=== PATIENT | male | born 1965 | race Caucasian/White ===

== ENCOUNTER → 2017-07-19 | Day surgery (SDC) | payer OTHER ==
[~2017-07-19] VITALS: Ht 180.3 cm; Wt 57.6 kg
[~2017-07-19] MED LIST: ADVAIR 250/501 EA; ALBUTEROL2.5 MG/0.5 INH; AMITRIPTYLINE100 M1 PO; ASPIR-LOW81 MG PO; ASPIRIN325 MG PO; BREO ELLIPTA 11 EACH IH; CEFUROXIME250 MG PO; CRESTOR20 MG PO; DAYPRO600 M1 PO; INCRUSE EL62.5 MCG/A IH; KLONOPIN1 MG PO; LEVOTHYROXIN0.025 MG PO; MOTRIN800 MG PO; NEXIUM20 MG PO; PLAVIX75 MG; PRAVACHOL40 MG PO; PREDNISONE20 M1 PO; PRILOSEC20 M1 PO; PROTONIX40 MG PO; SINGULAIR10 M1 PO; VENTOLIN H0.09 MG/AC INH; VICODIN ES 7501 TA1 PO; VITAMIN D5000 I2 PO; ZOLOFT100 MG PO
--- NOTE | ~2017-07-19 | PROC NOTE ---
[place], [place] PROCEDURE NOTE NAME: ARELIS FOLEY UNIT #: [id number] ROOM: DOCTOR: DESIREE MURCIA MD,NICKY BIRTHDATE: [birth year] DOS: 07/19/2017 PREOPERATIVE DIAGNOSES: Persistent severe cough and wheezing, not resolving with current maximum medical therapy. POSTOPERATIVE DIAGNOSES: Evidence of tracheobronchitis and removal of multiple plugs and mucus from endobronchial tree. PROCEDURE DESCRIPTION: Informed consent was obtained for the patient. The patient brought to the OR and placed in supine position. Conscious sedation administered by the Anesthesia Department. After achieving appropriate sedation, airway introduced into the mouth. The bronchoscope was advanced into the airway into the laryngeal area. The epiglottis and vocal cords were seen, which were moving symmetrically with movements and yellowish in color. The bronchoscope was advanced to the vocal cords into tracheal lumen. The tracheal lumen was noted with moderate amount of thick mucus secretions suctioned out nisha level. Nisha noted sharp. Right upper, right middle, right lower, left upper, lingular lower lobe bronchi for this patient were all examined. Moderate amount of mucus plug for the patient present in the endobronchial tree bilaterally, cleared with the help of normal saline wash, sent for culture. Procedure was tolerated by the patient without any difficulty. Postoperative findings were discussed with the patient's spouse in detail in the recovery room. NICKY RAMÍREZ MD CM:PROCNOTE:PROCEDURE NOTE [id number] NICKY MURCIA MD
[2017-07-19 08:38] VITALS: BP 153/93
[2017-07-19 09:10] VITALS: BP 152/84
[2017-07-19 09:25] VITALS: BP 144/85
[2017-07-19 09:40] VITALS: BP 130/86
[2017-07-20 16:08] LABS: ACID FAST SMEAR Negative (.); ACID FAST SPEC PROCESSING Concentration (.)
== END | disposition home or self-care (01) ==
LOC: SDC 07-16 10:15
PROVIDERS: Internal Medicine Critical Care Medicine
DX: J40 Bronchitis, not specified as acute or chronic (principal); J98.4 Other disorders of lung; I25.2 Old myocardial infarction; I25.10 Atherosclerotic heart disease of native coronary artery without angina pectoris; Z95.5 Presence of coronary angioplasty implant and graft; K21.9 Gastro-esophageal reflux disease without esophagitis; F41.9 Anxiety disorder, unspecified; F32.9 Major depressive disorder, single episode, unspecified; F17.210 Nicotine dependence, cigarettes, uncomplicated; J43.9 Emphysema, unspecified; E78.00 Pure hypercholesterolemia, unspecified; Z98.890 Other specified postprocedural states

== ENCOUNTER → 2017-12-06 | Day surgery (SDC) | payer OTHER ==
[~2017-12-06] VITALS: Ht 180.3 cm; Wt 56.7 kg
--- NOTE | ~2017-12-06 | PROC NOTE ---
[place], [place] PROCEDURE NOTE NAME: ARELIS FOLEY UNIT #: [id number] ROOM: DOCTOR: DESIREE MURCIA MD,NICKY BIRTHDATE: [birth year] DOS: 12/06/2017 PREOPERATIVE DIAGNOSES: Persistent nonresolving cough as outpatient with multiple administration of antibiotics as an outpatient and use of corticosteroids. POSTOPERATIVE DIAGNOSES: Moderate impaction of the mucus as well as finding of acute tracheobronchitis noted. PROCEDURE DESCRIPTION: Informed consent obtained from the patient. The patient brought to the OR and placed in supine position. Conscious sedation was administered by the Anesthesia Department. After achieving proper sedation, airway introduced into the mouth. Bronchoscope advanced to the airway into the laryngeal area. Epiglottis and vocal cords were seen. Vocal cords noted yellowish in color, moving symmetrically with movements. Bronchoscope entered vocal cord and tracheal lumen that shows moderate amount of mucus secretion with small purulent secretion that was suctioned out at maty level. Moderate mucus plug was also present in endobronchial tree bilaterally, which was suctioned out with normal saline wash, sent for cultures. Procedure was well tolerated by the patient without difficulty. Postoperative findings were discussed with the patient after the completion of procedure in the recovery room. The patient will be seen in the office for followup visit to determine the additional changes in the medical management accordingly. NICKY RAMÍREZ MD CM:PROCNOTE:PROCEDURE NOTE [id number] NICKY MURCIA MD
[2017-12-06 08:17] VITALS: BP 109/70
[2017-12-06 08:55] VITALS: BP 112/78
[2017-12-06 09:08] VITALS: BP 107/63
[2017-12-06 09:23] VITALS: BP 113/71
[2017-12-07 17:09] LABS: ACID FAST SMEAR Negative (.); ACID FAST SPEC PROCESSING Concentration (.)
== END ==
LOC: SDC 12-05 08:45
PROVIDERS: Internal Medicine Critical Care Medicine
DX: J20.9 Acute bronchitis, unspecified (principal); J98.09 Other diseases of bronchus, not elsewhere classified; I25.2 Old myocardial infarction; I25.10 Atherosclerotic heart disease of native coronary artery without angina pectoris; Z95.5 Presence of coronary angioplasty implant and graft; J43.9 Emphysema, unspecified; K21.9 Gastro-esophageal reflux disease without esophagitis; F41.9 Anxiety disorder, unspecified; F32.9 Major depressive disorder, single episode, unspecified; Z87.891 Personal history of nicotine dependence; Z98.890 Other specified postprocedural states; Z79.899 Other long term (current) drug therapy; E07.89 Other specified disorders of thyroid; Z88.2 Allergy status to sulfonamides; Z88.8 Allergy status to other drugs, medicaments and biological substances

== ENCOUNTER 2017-12-11 12:47 | Inpatient (IN) | payer OTHER ==
[~2017-12-11] VITALS: Ht 180.3 cm; Wt 55.3 kg
--- NOTE | ~2017-12-11 | PR ---
[place], [place] PROGRESS NOTE NAME: ARELIS FOLEY UNIT #: [id number] ROOM: 526 DOCTOR: ZACH GUSMAN MD BIRTHDATE: [birth year] DOS: 12/13/2017 SUBJECTIVE: The patient's breathing is improving with treatment. He is less short of breath. OBJECTIVE: VITAL SIGNS: Blood pressure 108/64, heart rate of 101 beats per minute, breathing 20 times per minute, temperature 98.2 degrees Fahrenheit. GENERAL APPEARANCE: The patient is alert and oriented x 3, in no visible distress. HEENT AND NECK: Exam within normal limits. CARDIOVASCULAR SYSTEM: Heart rate is regular in rate and rhythm. S1 and S2 normally audible. LUNGS: Clear to auscultation. ABDOMEN: Soft, nontender. No obvious organomegaly. Bowel sounds are present. EXTREMITIES: Without significant cyanosis or edema. IMPRESSION: 1. Acute community-acquired pneumonia, being treated with antibiotics. The patient is clinically improving. 2. Acute over chronic respiratory failure, improving with treatment. 3. Acute exacerbation of severe underlying chronic obstructive pulmonary disease. 4. History of chronic nicotine smoke dependence. The patient is being encouraged to stop. 5. Hypothyroidism, treated with thyroid supplements. 6. Generalized anxiety disorder, treated with clonazepam as needed. 7. Coronary artery disease of the [place] vessels, without chest pains. ZACH GUSMAN MD CM:PNTRANS [phone] ZACH GUSMAN MD 12/13/171923 interface
--- NOTE | ~2017-12-11 | PR ---
[place], [place] PROGRESS NOTE NAME: ARELIS FOLEY UNIT #: [id number] ROOM: 526 DOCTOR: JOSE F GARCIA MD BIRTHDATE: [birth year] DOS: SUBJECTIVE: The patient is sitting up in bed in no distress, states that his cough is better and sputum is loose, now he is able to cough up a lot of mucus. OBJECTIVE: VITAL SIGNS: Graphic trend shows a pressure of 152/85, pulse of 79, respirations 18, temperature 98.5. LUNGS: Diminished breath sounds, clear this morning. HEART: Regular. ABDOMEN: Soft, scaphoid. EXTREMITIES: Without any edema. LABORATORY DATA: Sputum culture shows light yeast. Echocardiogram shows normal LV function. ASSESSMENT AND PLAN: 1. The patient with hypoxic respiratory failure, acute from underlying pneumonia, left lung. The patient is on antibiotics. Sputum cultures are negative. 2. Ventricular dysrhythmia with hypomagnesemia and hypokalemia. The patient was seen by Cardiology. No further workup planned. We will recheck labs in the morning. Hopefully, discharge on Sunday. JOSE F GARCIA MD CM:PNTRANS [phone] JOSE F GARCIA MD 12/15/172030 interface
--- NOTE | ~2017-12-11 | PR ---
[place], [place] PROGRESS NOTE NAME: ARELIS FOLEY UNIT #: [id number] ROOM: 526 DOCTOR: JOSE F GARCIA MD BIRTHDATE: [birth year] DOS: SUBJECTIVE: The patient is doing fine without any complaint. Denies any chest pains, palpitations or shortness of breath. Her chest x-ray shows clearing of the pneumonia. OBJECTIVE: VITAL SIGNS: Blood pressure is 141/87, pulse of 96, respirations 20, temperature 97.9. LUNGS: Clear. HEART: Regular. ABDOMEN: Soft. EXTREMITIES: Without any edema. ASSESSMENT AND PLAN: 1. Left lower lobe pneumonia with negative Sputum culture. 2. Acute exacerbation of chronic obstructive pulmonary disease, improved. Bronchospasm. The plan is to discharge him home today to follow up with Dr. Batista as well as Dr. Parikh as an outpatient. Prescription for Ceftin and a tapering dose of antibiotics were given. JOSE F GARCIA MD CM:PNTRANS [phone] JOSE F GARCIA MD 12/17/17 0951 interface
--- NOTE | ~2017-12-11 | PR ---
[place], [place] PROGRESS NOTE NAME: ARELIS FOLEY UNIT #: [id number] ROOM: 526 DOCTOR: ZACH GUSMAN MD BIRTHDATE: [birth year] DOS: 12/14/2017 SUBJECTIVE: The patient continues to breathe better. He is going for repeat chest x-ray today. OBJECTIVE: VITAL SIGNS: Blood pressure 118/62, heart rate 93 beats per minute, breathing 20 times per minute, temperature 98 degrees Fahrenheit. GENERAL APPEARANCE: The patient is alert and oriented x 3, in no visible distress. HEENT AND NECK: Exam within normal limits. CARDIOVASCULAR SYSTEM: Heart rate is regular in rate and rhythm. S1 and S2 normally audible. LUNGS: Clear to auscultation. ABDOMEN: Soft, nontender. No obvious organomegaly. Bowel sounds are present. EXTREMITIES: Without significant cyanosis or edema. IMPRESSION: 1. The patient with acute exacerbation of severe underlying chronic obstructive pulmonary disease and acute over chronic respiratory failure, continues to improve. 2. Bilateral lower lobe pneumonia, more on the left side, being treated with antibiotics and followed by Dr. Parikh, the fitness studies teacher. The patient is going for repeat chest x-ray today. 3. Coronary artery disease of the [place] vessels, without chest pain. 4. Severe generalized anxiety disorder, being treated with clonazepam as needed. 5. Hypothyroidism, treated with supplements. 6. History of chronic nicotine abuse and dependence. The patient encouraged to stop. ZACH GUSMAN MD CM:PNTRANS [id number] ZACH GUSMAN MD 12/14/17 1152 interface
--- NOTE | ~2017-12-11 | CON ---
[place], [place] REPORT OF CONSULTATION NAME: ARELIS FOLEY UNIT #: [id number] ROOM: 526 DOCTOR: NICKY COLLADO MD BIRTHDATE: [birth year] DOS: 12/12/2017 PULMONARY CONSULTATION, EVALUATION AND MANAGEMENT CONSULTATION REQUESTED BY: Dr. Batista. REASON FOR CONSULTATION: To assess the patient for the current acute pneumonia with chest pain or respiratory failure. HISTORY OF PRESENT ILLNESS: This is a 52-year-old white male who has been well known to me from the past. The patient has recently outpatient bronchoscopy done last week because of nonresolving cough. The patient has reported improvement and resolution of the cough after that, but yesterday the patient seen in the office for followup visit. He stated he woke up with severe pain, which described in the lower rib cage. The pain was described radiating from the back to the front as well. The symptoms of cough for the patient has been developed again with increased shortness of breath that occurs with mild exertion. The patient was noted with symptoms of fatigue as well. There were no symptoms of hemoptysis reported by the patient. He does have some symptoms of wheezing. The patient was assessed in the office. Pulse oxygen saturation of the patient is noted as 86% at rest on room air, which was a new finding. The patient was started on oxygen supplementation on 2 liters cannula. The oxygen saturation improved to 91% with that. The chest x-ray done in the office, which shows chronic infiltration most likely in the left lower lobe for this patient with changes of severe COPD and bullous emphysema. He was sent to the Emergency Room. The patient was assessed in the Emergency Room. The patient did speak with Dr. Nunez about patient's assessment. The patient has been admitted to the hospice. CTA of the chest was done yesterday that did rule out the evidence of pulmonary embolism, but the pneumonia was reported in the lower lungs. REVIEW OF SYSTEMS: CONSTITUTIONAL: Fatigue and tiredness as well. Denies symptoms of fever or chills. EYES: Denies any burning, redness, or tenderness. EARS, NOSE, AND THROAT SYMPTOMS: Denies sore throat, hoarseness, otalgia, postnasal drainage or epistaxis. CARDIOVASCULAR: Denies angina pain, edema or pain of the lower extremities. GASTROINTESTINAL: No dysphagia, nausea, vomiting, diarrhea, abdominal pain, hematemesis, melena, or hematochezia. GENITOURINARY: No dysuria, suprapubic pain, hematuria. SKIN: Denies lesions or rashes. MUSCULOSKELETAL: Without any acute deformities. CENTRAL NERVOUS SYSTEM: Denies dizziness, headache, diplopia, syncopal episode, seizures or any focal neurologic deficit or migraine headache, or diplopia. Remaining systems were reviewed with the patient, they were noted all negative. PAST MEDICAL HISTORY: 1. History of end-stage COPD. [place], [place] REPORT OF CONSULTATION NAME: ARELIS FOLEY UNIT #: [id number] ROOM: 526 DOCTOR: NICKY COLLADO MD BIRTHDATE: [birth year] 2. 7.4 mm right upper lung nodule. The patient known since May 2017. 3. Past history of traumatic sternal fracture for the patient that was treated and resolved. 4. Hypothyroidism. 5. Hypercholesterolemia. 6. Intervertebral disk disease. 7. History of coronary artery disease. 8. Gastroesophageal reflux. 9. Chronic nicotine dependence. PAST SURGICAL HISTORY: 1. Cardiac catheterization in 2004. 2. Fibrobronchoscopy that was done in 12/2017. FAMILY HISTORY: The patient's father at age 46-year-old with complication of liver cirrhosis. The mother at age 46 with complication of COPD. SOCIAL HISTORY: The patient is , has 4 children, lives at home. Tobacco use was noted at age of [age] years old, 1.5 pack of cigarettes per day to a pack of cigarettes per day intermittently. No history of alcohol use, illicit drug use. There was no occupation related pulmonary exposure history. CURRENT MEDICATIONS: Administered the patient was noted as use of Singulair, Plavix, sertraline, aspirin, Protonix, levothyroxine, simvastatin, amitriptyline, DuoNeb, Zithromax, IV Zosyn and other p.r.n. medications administration. DRUG ALLERGIES: NOTED ALLERGY TO: 1. BACTRIM. 2. LEVAQUIN. PHYSICAL EXAMINATION: GENERAL: A 52-year-old male who has been currently noted to be awake and alert at this time better than yesterday. Height of 5 feet 11 inches, weight of 122 pounds, BMI 17. VITAL SIGNS: Shows normal temperature noted. The respiratory rate range between 18-20, heart rate 90-110 with mild sinus tachycardia, blood pressure 86/59-113/71. Pulse oxygen saturation of the patient noted on 3 liters cannula was 92% saturation. HEENT: Head was atraumatic. Eyes: No icterus. NECK: Supple. CARDIOVASCULAR: S1, S2 is audible. LUNGS: The patient was noted generally reduced air entry in the lungs. Partial improvement. The expiratory wheezing noted in the upper portion of the lungs today. ABDOMEN: Soft, nontender. Bowel sounds present. EXTREMITIES: The patient was noted with chronic loss of muscle mass without any deformities. SKIN: Visible skin. No lesions or rashes. MUSCULOSKELETAL: Without any gross focal neurologic deficit. Cranial nerves [place], [place] REPORT OF CONSULTATION NAME: ARELIS FOLEY UNIT #: [id number] ROOM: 526 DOCTOR: NICKY COLLADO MD BIRTHDATE: [birth year] 2-12 intact. LABORATORY DATA: Acid fast smear for the patient noted initial negative. Bronchial washing, pending culture. The cultures of the bronchial washing of the patient from 12/06/2017 were noted as no bacterial growth. Lactic acid yesterday 1.0. CMP yesterday, the patient's BUN and creatinine was normal, sodium 135. Troponin was normal. The CBC of the patient that was done yesterday, WBC count 16.9, hemoglobin 11.2, hematocrit 34.2, platelet count of 19,000. The chest x-ray one view in the Emergency Room shows similar finding as previously noted severe changes of COPD for the patient with possible pulmonary infiltration in the left lower lobe for the patient or scarring. CT of the chest yesterday does not show any evidence of pulmonary embolism. Diffuse centrilobular emphysema changes noted with some bullous formation as well in the lungs bilaterally. The patient was noted with infiltration, which was noted in the previous of the left lower lobe, moderate size. Small infiltration in the right lower lobe was also noted. The lingular subsegment for the patient also shows evidence of a small infiltration. IMPRESSION: 1. The patient was currently noted with acute pneumonia with acute hypoxic respiratory failure with acute exacerbation of chronic obstructive pulmonary disease as well. 2. Rule out chronic infection with the patient including Mycobacterium avium intracellular, the bronchoscopy done for the patient with pending culture results, acid fast bacillus too early to get the results. 3. History of chronic nicotine dependence as well. 4. Chronic protein-calorie malnutrition was also seen. PLAN OF MANAGEMENT: Continuation of the oxygen supplementation and bronchodilators. Steroids will be added to the treatment. Solu-Medrol 40 mg b.i.d. to help resolve the exacerbation of COPD. The sputum for Gram stain and culture were re-ordered as well. Monitor other culture results. The patient was also noted mild hypertension secondary to intravascular volume depletion. The patient will benefit from use of intravenous fluid, which has already been noted in progress ordered by Dr. Batista. Other supportive therapy, plan of management and care plan for the patient. Additional treatment changes to be made for the patient based on the progression of the illness. Changes in the medical management will be made for the patient based on progression of the illness. Thanks for allowing me to participate in the care of this patient. [place], [place] REPORT OF CONSULTATION NAME: ARELIS FOLEY UNIT #: [id number] ROOM: 526 DOCTOR: NICKY COLLADO MD BIRTHDATE: [birth year] NICKY RAMÍREZ MD CM:CONSTR:REPORT OF CONSULTATION 1406 12/12/17 2332 interface
--- NOTE | ~2017-12-11 | PR ---
[place], [place] PROGRESS NOTE NAME: ARELIS FOLEY UNIT #: [id number] ROOM: 526 DOCTOR: DESIREE MURCIA MD,NICKY BIRTHDATE: [birth year] DOS: 12/14/2017 SUBJECTIVE: The patient noted comfortable at this time, resting in the bed. Shortness of breath, cough and wheezing other symptoms have been gradually subsiding. Denies symptoms of chest pain at this time. The previous chest pain reported in the lower portion of the chest is improving. OBJECTIVE: VITAL SIGNS: Normal temperature, respiratory rate 18, heart rate 92, blood pressure 122/73. The pulse oxygen saturation on room air 96% saturation. HEENT: Shows no acute change. NECK: Supple. CARDIOVASCULAR: S1, S2 is audible. LUNGS: The patient noted without any wheeze or crackles at this time. ABDOMEN: Soft, nontender. EXTREMITIES: The patient noted without any acute edema. IMPRESSION: 1. Resolving acute bilateral pneumonia clinically with acute exacerbation of chronic obstructive pulmonary disease as well. 2. History of chronic nicotine dependence as well. PLAN OF TREATMENT: Continue current antibiotic. Obtain a chest x-ray in the morning. Culture of the sputum preliminary showing normal josé luis with pending results. The culture will be monitored prior to making any final recommendation of the changes in the antibiotics. NICKY RAMÍREZ MD CM:PNTRANS [id number] NICKY MURCIA MD 12/15/17 0116 interface
--- NOTE | ~2017-12-11 | PR ---
[place], [place] PROGRESS NOTE NAME: ARELIS FOLEY UNIT #: [id number] ROOM: 526 DOCTOR: DESIREE MURCIA MD,NICKY BIRTHDATE: [birth year] DOS: 12/17/2017 SUBJECTIVE: The patient noted comfortable and has been noted with complete resolution of the pain, shortness of breath and cough. All other symptoms have been improving. Denies symptoms of chest pain or any hemoptysis. OBJECTIVE: VITAL SIGNS: For the patient which has been recorded showed the temperature noted normal, respiratory rate 20, heart rate 96, blood pressure 141/87. The pulse oxygen saturation for the patient was noted on room air 95% saturation. HEENT: No acute change. NECK: Supple. CARDIOVASCULAR: S1, S2 is audible. LUNGS: Without any wheeze or crackles at this time. Breath sounds are [id number] decreased bilaterally. Good air entry otherwise. ABDOMEN: Soft and nontender. EXTREMITIES: Without any acute edema. RADIOLOGIC DATA: Chest x-ray this morning shows further resolution of the left lower lobe infiltration, which were almost completely resolved. IMPRESSION: The patient with resolution of acute pneumonia, gram-negative organisms and gram-positive effectively treated with Zosyn. Currently ready for home discharge. The patient was started on oral Augmentin 375 mg p.o. b.i.d. to be taken for 5 days. Further treatment changes will be done for this patient based on the progression of the illness. NICKY RAMÍREZ MD CM:PNTRANS [phone] NICKY MURCIA MD 12/17/17 1317 interface
--- NOTE | ~2017-12-11 | PR ---
[place], [place] PROGRESS NOTE NAME: ARELIS FOLEY UNIT #: [id number] ROOM: 526 DOCTOR: NICKY COLLADO MD BIRTHDATE: [birth year] DOS: 12/16/2017 SUBJECTIVE: The patient continued to show improvement in respiratory symptoms. The patient has improved significantly. There were no symptoms of abdominal pain. Denies symptoms of nausea or vomiting. Coughing has been subsiding. Shortness of breath is improving. OBJECTIVE: VITAL SIGNS: Normal temperature, respiratory rate 20, heart rate 84, blood pressure 180/64. HEENT: Examination shows head was atraumatic. Eyes nonicterus. NECK: Supple. CARDIOVASCULAR: S1, S2 was audible. LUNGS: The patient was noted without any wheezing or crackles at the present time. Breaths are noted mildly diminished bilaterally. ABDOMEN: Soft, nontender. EXTREMITIES: Without any acute edema. LABORATORY DATA: BMP today noted normal BUN and creatinine and other electrolytes. Chest x-ray of the patient that was done for the patient on 12/16/2017 for the patient shows area of atelectasis. The patient infiltration in the left lower lobe which has been noted decreased as compared with previous chest x-ray. IMPRESSION: 1. Resolving acute bilateral lower lobe pneumonia, documented on CT scan of the chest. 2. She is improving acute exacerbation of chronic obstructive pulmonary disease as well. PLAN OF TREATMENT: No changes in the plan of therapy of the patient at this time. Continuation of the current plan of management for the patient at this time. Usual care. Supportive care, other treatment. and therapies. [place], [place] PROGRESS NOTE NAME: ARELIS FOLEY UNIT #: [id number] ROOM: 526 DOCTOR: NICKY COLLADO MD BIRTHDATE: [birth year] NICKY RAMÍREZ MD CM:PNTRANS [id number] NICKY MURCIA MD 12/16/17 1434 interface
--- NOTE | ~2017-12-11 | PR ---
[place], [place] PROGRESS NOTE NAME: ARELIS FOLEY UNIT #: [id number] ROOM: 526 DOCTOR: DESIREE MURCIA MD,NICKY BIRTHDATE: [birth year] DOS: 12/13/2017 PULMONARY FOLLOWUP SUBJECTIVE: The patient has been noted comfortable at this time, although shortness of breath was noted. The cough has been improving. Denies symptoms of chest pain or hemoptysis. The patient has not been noted any symptoms of edema or pain of the lower extremities. OBJECTIVE: VITAL SIGNS: For the patient which has been recorded showed normal temperature, respiratory rate 20, heart rate 101, blood pressure 108/64, pulse oxygen saturation on room air was 93% saturation. HEENT: No acute change. NECK: Supple. Head was atraumatic. CARDIOVASCULAR: S1, S2 is audible. LUNGS: The patient was noted without any wheeze or crackles at the present time. Breath sounds still noted generally diminished bilaterally, but the improvement in air entry was noted yesterday. IMPRESSION: Bilateral acute lower lobe pneumonia greater in the left than the right side, responded to treatment. Culture of the sputum pending. The Gram stain, moderate white blood cells, moderate gram-positive cocci in pairs and chains. PLAN OF THERAPY: Continuation of the current plan of therapy for the patient at this time as in progress. Usual care. Additional treatment changes to be made for the patient based on progression of the illness. NICKY RAMÍREZ MD CM:PNTRANS [phone] NICKY MURCIA MD 12/13/17 2301 interface
--- NOTE | ~2017-12-11 | DS ---
[place], [place] DISCHARGE SUMMARY NAME: ARELIS FOLEY UNIT #: [id number] ROOM: 526 DOCTOR: JOSE F GARCIA MD BIRTHDATE: [birth year] DOS: Please refer to Dr. Batista's H and P for further details. The patient was admitted to the hospital with complaints of shortness of breath, cough, shaking chills, was found to have an elevated white cell count of 21,000 in the ER. He was hypotensive and slightly lethargic, was admitted to the hospital. The patient after admission was placed on IV fluids, IV antibiotics. Consultation with Dr. Parikh was obtained. A CT of the chest was done, which showed bilateral lower lobe pneumonia, which is most likely Gram-negative with sepsis pattern. The patient's blood cultures were ordered with IV fluids, oxygen supplementation, breathing treatments, antibiotics and steroids. His symptoms did improve. His blood pressure normalizes and he is no longer lethargic. His cough and shortness of breath have subsided. Chest x-ray was rechecked and it shows improvement radiologically also. On December 18, the patient is stable enough to be discharged to home on tapering dose of prednisone and Ceftin 250 twice a day. The rest of his home medications were continued. JOSE F GARCIA MD CM:GLORIA [phone] JOSE F GARCIA MD 12/19/172200 interface
--- NOTE | ~2017-12-11 | PR ---
[place], [place] PROGRESS NOTE NAME: ARELIS FOLEY UNIT #: [id number] ROOM: 526 DOCTOR: DESIREE MURCIA MD,NICKY BIRTHDATE: [birth year] DOS: 12/15/2017 PULMONARY PROGRESS NOTE SUBJECTIVE: The patient has been noted comfortable at this time, continued to show reduction and improvement in symptoms of chest pain. Shortness of breath and cough has been gradually subsiding. The patient denies symptoms of hemoptysis. Continue intravenous antibiotic for the management of acute pneumonia. The patient denies any abdominal pain. OBJECTIVE: VITAL SIGNS: Normal temperature, respiratory rate 18, heart rate 67, blood pressure 141/78. The pulse oxygen saturation recorded as 94% on room air. HEENT: Showed no acute change. NECK: Supple. CARDIOVASCULAR: S1, S2 audible. LUNGS: Noted with improvement in air entry of the lungs noted bilaterally. ABDOMEN: Soft, nontender. EXTREMITIES: Without any acute edema. LABORATORY DATA: Culture of the sputum was noted mild growth of yeast. IMPRESSION: The patient with acute bacterial pneumonia involving lower lung. Considered as a gram-negative infection. The patient responded to the treatment effectively with current medical management, radiological and clinical improvement have been continued. PLAN OF MANAGEMENT: Continuation of intravenous antibiotic and IV Zosyn for the patient in the next several days. Discontinuation of the Zithromax. The Solu-Medrol will be continued as the acute exacerbation of chronic obstructive pulmonary disease. Continue the same dose. Repeat chest x-ray of the patient Sunday morning prior to possible consideration home discharge. NICKY RAMÍREZ MD CM:PNTRANS NICKY MURCIA MD 12/15/17 0953 interface
--- NOTE | ~2017-12-11 | WRIGHTHP ---
[place], [place] PATIENT HISTORY AND PHYSICAL EXAM NAME: ARELIS FOLEY [facility] #: [id number] UNIT #: [id number] ROOM: 526 DOCTOR: ZACH GUSMAN MD BIRTHDATE: [birth year] DOS: 12/11/2017 HISTORY OF PRESENT ILLNESS: The patient is a 52-year-old gentleman with history of: 1. Advanced COPD, with nicotine smoke dependence. 2. History of coronary artery disease of [place] vessels. 3. Major depression, recurrent, mild. 4. GERD and esophagitis. 5. Chronic back pains. 6. Mixed hyperlipidemia. 7. Generalized anxiety disorder. 8. Adult failure to thrive. 9. Hypothyroidism. The patient presented to [facility] Emergency Department, sent over by Dr. Parikh for bilateral lower lung pneumonia, left more than the right. The patient was having shaking chills at home and some shortness of breath, cough with sputum. In the Emergency Department, the patient was diagnosed as being septic with white cell count elevated to 21,300. He was in acute over chronic respiratory failure with pneumonia, chills and rigors and after admission he became hypotensive and is undergoing fluid resuscitation. The patient is awake, alert and he had become somewhat lethargic this morning and very tired, which has improved. The patient was never recorded to have any fevers, but the maximum temperature was 99.5 degrees Fahrenheit. REVIEW OF SYSTEMS: LUNGS: Some increasing shortness of breath, cough and purulent sputum. GASTROINTESTINAL: No nausea, vomiting, diarrhea or constipation. CARDIOVASCULAR: No chest pain or palpitations. FAMILY HISTORY: Noncontributory. HOME MEDICATIONS: Singulair, Plavix, Zoloft, aspirin, Protonix, levothyroxine, simvastatin, amitriptyline, DuoNeb, clonazepam, Vicodin. ALLERGIES: Known allergies to QUINOLONES, SULFA. PHYSICAL EXAMINATION: GENERAL: Alert, oriented x 3, ____. HEENT AND NECK: Extraocular movements are intact. Sclerae are anicteric. Oral mucosa is moist and clean. No obvious facial weakness. Neck is supple without any lymphadenopathy. No thyromegaly. No JVD. No carotid arterial bruits. LUNGS: Show decreased breath sounds and expiratory wheezing. CARDIOVASCULAR SYSTEM: Heart rate is regular in rate and rhythm. S1, S2 audible. ABDOMEN: Soft, nontender. No obvious organomegaly. Bowel sounds are present. No obvious herniation. EXTREMITIES: Without significant cyanosis or edema. Warm to touch. CENTRAL NERVOUS SYSTEM: Alert and oriented x 3. Cranial nerves II-XII are intact. Speech is normal. The patient is able to move all extremities. Normal [place], [place] PATIENT HISTORY AND PHYSICAL EXAM NAME: ARELIS FOLEY UNIT #: [id number] ROOM: 526 DOCTOR: ZACH GUSMAN MD BIRTHDATE: [birth year] muscle strength. Deep tendon reflexes are equal on both sides. Plantars were downgoing. LABORATORY DATA: Normal serum electrolytes. White cell count of 16,900, hemoglobin 11.2. Chest x-ray is showing COPD and some pulmonary fibrosis. CT angiogram of the chest showing bilateral lower lung patchy infiltrate, left more than the right, suggestive of pneumonia. IMPRESSION AND PLAN: 1. Acute community-acquired pneumonia, left more than the right with sepsis, severe leukocytosis, mild fever, hypotension, increased tiredness and hypotension is all improving with treatment with antibiotics and hydration with normal saline. The patient is being given fluid boluses with normal saline and his urine output is being watched. The patient kept on a ekg monitor tech. 2. Coronary artery disease of the [place] vessels and stent placement, without chest pain. 3. Acute exacerbation of severe underlying chronic obstructive pulmonary disease with acute over chronic respiratory failure, being treated with oxygen therapy and bronchodilators. 4. Gastroesophageal reflux disease and esophagitis, asymptomatic with treatment. The patient is on Protonix made. 5. Major depression, recurrent, mild, treated and controlled with Zoloft. 6. Hypothyroidism, treated with thyroid supplements. 7. Mixed hyperlipidemia, treated with simvastatin, which has been continued. 8. Generalized anxiety disorder, treated and controlled. The patient remains on clonazepam as needed. ZACH GUSMAN MD CM:HISPHYS:PATIENT HISTORY AND PHYSICAL EXAMINATION [id number] ZACH GUSMAN MD 12/12/17 1206 interface
--- NOTE | ~2017-12-11 | PR ---
[place], [place] PROGRESS NOTE NAME: ARELIS FOLEY [facility] #: [id number] UNIT #: [id number] ROOM: 526 DOCTOR: CRAIG AYOUB MD BIRTHDATE: [birth year] DOS: 12/15/2017 SUBJECTIVE: The patient was seen at his bedside today 12/15/2017 for followup of ventricular arrhythmias. He is a 52-year-old man who reportedly has a history of coronary artery disease with a stent placed in 2004. He has not had cardiology followup since. He did have a stress test on 11/27/2016 which showed an ejection fraction of 69% and normal myocardial perfusion. The patient is known to have severe obstructive lung disease and presented to this hospital on this occasion with acute exacerbation of his lung disease associated with a left lower lobe pneumonia. He is being treated with antibiotics. He states that his breathing has improved and his cough has diminished. During this hospitalization, he has been noticed on the monitor to have frequent PVCs with runs of bigeminy. We were asked to determine if this was a clinically significant finding. The patient denies chest pain or palpitations. He has not had any lightheadedness or syncope. The monitor has not shown any ventricular tachycardia and his troponin level was normal. He did have an echocardiogram on 12/14/2017 which was a technically difficult study due to his lung disease. Left ventricular size, wall thickness, regional wall motion, and systolic function were all normal. Diastolic function was also normal. The aortic root did appear to be mildly dilated measuring 3.9 cm; however, when I looked at the CAT scan of his chest with contrast, he does not have any evidence for an ascending aortic aneurysm. PHYSICAL EXAMINATION: GENERAL: Today, he is a slender white male who is awake, alert and oriented. VITAL SIGNS: Pulse is 85 and regular, blood pressure is 149/83. He is afebrile. He weighs 55.3 kg and has a body mass index of 17. HEENT: Normocephalic and atraumatic. Extraocular muscles are intact. Sclerae are clear. Pupils are equal, round and react to light. The oral mucosa is moist. Tongue is midline. NECK: Supple. He has no jugular distention. Carotids are full. I heard no bruits. He had no neck or supraclavicular masses and no thyromegaly. LUNGS: Respirations are unlabored. He has markedly diminished breath sounds bilaterally with a few scattered crackles. I did not hear any wheezes. He had no presacral edema or chest wall tenderness. HEART: Had distant tones which were regular. He has a soft S4 gallop, but no S3 or murmur. The PMI is not displaced. ABDOMEN: Soft and normally active. EXTREMITIES: Showed no edema. Peripheral pulses are palpable bilaterally. IMPRESSION: 1. Acute exacerbation of chronic lung disease. 2. Left lower lobe pneumonia. 3. Remote history of coronary artery disease. His most recent stress test done [place], [place] PROGRESS NOTE NAME: ARELIS FOLEY UNIT #: [id number] ROOM: 526 DOCTOR: CRAIG AYOUB MD BIRTHDATE: [birth year] about a year ago showed no evidence for left ventricular dysfunction or ischemia. 4. Echocardiogram 12/14/2017 was a technically difficult study, but otherwise unremarkable. 5. History of hypothyroidism, on replacement. 6. History of hyperlipidemia. 7. Tobacco abuse. PLAN: No other cardiac workup is planned at this time. We will continue to observe him intermittently in the hospital. As noted yesterday, the PVCs are likely due to a combination of hypoxemia, increased work of breathing, , etc. I thank Dr. Batista for asking our advice regarding the patient's care. CRAIG AYOUB MD CM:PNTRANS [id number] CRAIG AYOUB MD 12/15/17 1526 interface
[~2017-12-11 12:47] MED LIST changes: +KLONOPIN1 M1 PO; -KLONOPIN1 MG PO
[2017-12-11 13:07] VITALS: BP 110/68
[2017-12-11 13:52] LABS: BASO # 0.1 10*3/uL (0.0-0.1); BASO % 0.4 % (0.0-1.0); EOS % 0.1 % (1.0-4.0); HEMATOCRIT 34.6 % (42.0-52.0); HEMOGLOBIN 11.4 g/dl (14.0-18.0); LYMPH # 1.8 10*3/uL (1.3-4.4); LYMPH % 8.4 % (27.0-41.0); MEAN CELL VOLUME 88.5 fl (80.0-94.0); MEAN CORPUSCULAR HGB 29.2 pg (27.0-31.0); MEAN CORPUSCULAR HGB CONC 32.9 g/dl (33.0-37.0); MEAN PLATELET VOLUME 9.6 fl (9.6-12.3); MONO # 1.1 10*3/uL (0.1-1.0); MONO % 5.3 % (3.0-9.0); NEUT # 18.1 10*3/uL (2.3-7.9); PLATELET COUNT AUTOMATED 230 10*3/uL (130-400); RED BLOOD COUNT 3.91 10*6/uL (4.50-5.90); RED CELL DISTRI WIDTH 14.4 % (0-14.5); WHITE BLOOD COUNT 21.3 10*3/uL (4.8-10.8)
[2017-12-11 14:09] LABS: ALBUMIN 2.8 gm/dl (3.1-4.5); ALKALINE PHOSPHATASE 58 U/L (45-117); BUN 13 mg/dl (7-24); CHLORIDE 98 mmol/L (98-107); CREATININE 0.93 mg/dL (0.70-1.30); POTASSIUM 3.6 mmol/L (3.5-5.1); SGOT/AST 13 IU/L (3-35); SGPT/ALT 16 U/L (12-78); SODIUM 135 mmol/L (136-145); TOTAL PROTEIN 6.7 gm/dL (6.4-8.2)
[2017-12-11 14:10] LABS: TROPONIN I < 0.015 ng/ml (<0.045)
[2017-12-11 14:48] VITALS: BP 109/69
[2017-12-11 15:32] VITALS: BP 110/62
[2017-12-11 17:41] VITALS: BP 120/77
[2017-12-11 18:22] VITALS: BP 162/90
[2017-12-11] MEDS ORDERED: NORCO 7.5-3251 EACH PO (18:43)
[2017-12-11 18:48] VITALS: BP 133/70
[2017-12-12] VITALS (7 sets, daily range): BP systolic 86–100; BP diastolic 58–68
[2017-12-12 06:35] LABS: BASO # 0.1 10*3/uL (0.0-0.1); BASO % 0.4 % (0.0-1.0); EOS # 0.1 10*3/uL (0.0-0.4); EOS % 0.5 % (1.0-4.0); HEMATOCRIT 34.2 % (42.0-52.0); HEMOGLOBIN 11.2 g/dl (14.0-18.0); LYMPH # 1.1 10*3/uL (1.3-4.4); LYMPH % 6.5 % (27.0-41.0); MEAN CELL VOLUME 88.1 fl (80.0-94.0); MEAN CORPUSCULAR HGB 28.9 pg (27.0-31.0); MEAN CORPUSCULAR HGB CONC 32.7 g/dl (33.0-37.0); MEAN PLATELET VOLUME 9.7 fl (9.6-12.3); MONO # 0.7 10*3/uL (0.1-1.0); MONO % 4.1 % (3.0-9.0); NEUT # 14.8 10*3/uL (2.3-7.9); NEUT % 87.6 % (47.0-73.0); PLATELET COUNT AUTOMATED 219 10*3/uL (130-400); RED BLOOD COUNT 3.88 10*6/uL (4.50-5.90); RED CELL DISTRI WIDTH 14.6 % (0-14.5); WHITE BLOOD COUNT 16.9 10*3/uL (4.8-10.8)
[2017-12-12 06:58] LABS: BUN 11 mg/dl (7-24); CHLORIDE 98 mmol/L (98-107); CREATININE 0.69 mg/dL (0.70-1.30); POTASSIUM 3.7 mmol/L (3.5-5.1); SODIUM 134 mmol/L (136-145)
[2017-12-13 00:32] VITALS: BP 93/58
[2017-12-13 06:22] LABS: HEMATOCRIT 30.8 % (42.0-52.0); HEMOGLOBIN 10.1 g/dl (14.0-18.0); MEAN CELL VOLUME 90.3 fl (80.0-94.0); MEAN CORPUSCULAR HGB 29.6 pg (27.0-31.0); MEAN CORPUSCULAR HGB CONC 32.8 g/dl (33.0-37.0); MEAN PLATELET VOLUME 9.8 fl (9.6-12.3); PLATELET COUNT AUTOMATED 201 10*3/uL (130-400); RED BLOOD COUNT 3.41 10*6/uL (4.50-5.90); RED CELL DISTRI WIDTH 14.4 % (0-14.5); WHITE BLOOD COUNT 6.6 10*3/uL (4.8-10.8)
[2017-12-13 06:47] LABS: BUN 14 mg/dl (7-24); CHLORIDE 108 mmol/L (98-107); CREATININE 0.69 mg/dL (0.70-1.30); POTASSIUM 3.7 mmol/L (3.5-5.1); SODIUM 140 mmol/L (136-145)
[2017-12-13 06:54] LABS: PLATELET SUFFICIENCY NORMAL (NORMAL); TOTAL CELLS COUNTED 100 #CELLS
[2017-12-13 08:00] VITALS: BP 104/56
[2017-12-13 12:00] VITALS: BP 108/64
[2017-12-13 16:00] VITALS: BP 116/73
[2017-12-13 20:00] VITALS: BP 112/68
[2017-12-13 23:29] LABS: POTASSIUM 3.5 mmol/L (3.5-5.1)
[2017-12-14 00:19] VITALS: BP 122/73
[2017-12-14 07:02] LABS: BASO % 0.1 % (0.0-1.0); LYMPH # 0.8 10*3/uL (1.3-4.4); LYMPH % 7.4 % (27.0-41.0); MEAN CELL VOLUME 89.7 fl (80.0-94.0); MEAN CORPUSCULAR HGB 28.8 pg (27.0-31.0); MEAN CORPUSCULAR HGB CONC 32.1 g/dl (33.0-37.0); MEAN PLATELET VOLUME 9.7 fl (9.6-12.3); MONO # 0.2 10*3/uL (0.1-1.0); MONO % 2.3 % (3.0-9.0); NEUT # 9.3 10*3/uL (2.3-7.9); NEUT % 89.3 % (47.0-73.0); PLATELET COUNT AUTOMATED 212 10*3/uL (130-400); RED BLOOD COUNT 3.12 10*6/uL (4.50-5.90); RED CELL DISTRI WIDTH 14.5 % (0-14.5); WHITE BLOOD COUNT 10.4 10*3/uL (4.8-10.8)
[2017-12-14 07:23] LABS: BUN 10 mg/dl (7-24); CHLORIDE 108 mmol/L (98-107); CREATININE 0.52 mg/dL (0.70-1.30); POTASSIUM 3.6 mmol/L (3.5-5.1); SODIUM 143 mmol/L (136-145)
[2017-12-14 08:00] VITALS: BP 118/62
[2017-12-14 12:00] VITALS: BP 116/64
[2017-12-14 16:00] VITALS: BP 132/80
[2017-12-14 20:00] VITALS: BP 131/78
[2017-12-15] VITALS: BP 130/82
[2017-12-15 08:00] VITALS: BP 141/78
[2017-12-15 12:00] VITALS: BP 149/83
[2017-12-15 16:00] VITALS: BP 152/85
[2017-12-15 20:00] VITALS: BP 133/79
[2017-12-16] VITALS: BP 138/73
[2017-12-16 06:43] LABS: BUN 12 mg/dl (7-24); CHLORIDE 103 mmol/L (98-107); CREATININE 0.69 mg/dL (0.70-1.30); POTASSIUM 4.1 mmol/L (3.5-5.1); SODIUM 140 mmol/L (136-145)
[2017-12-16 07:51] VITALS: BP 118/64
[2017-12-16 12:00] VITALS: BP 132/74
[2017-12-16 16:00] VITALS: BP 150/86
[2017-12-16 20:00] VITALS: BP 135/83
[2017-12-17] VITALS: BP 145/75
[2017-12-17 08:00] VITALS: BP 141/87
[2017-12-17] MEDS ORDERED: CLOPIDOGREL75 MG PO (09:02)
[2017-12-17] MEDS ORDERED: PREDNISONE5 MG PO (09:04)
[2017-12-17] MEDS ORDERED: CEFUROXIME AXE250 MG PO (09:04)
[2017-12-17 12:00] VITALS: BP 131/85
== END 2017-12-17 14:39 | disposition home or self-care (01) | DRG 871 ==
LOC: ED 12:47 → 5E 17:50 → EDHOLD 17:50 → 5E 18:19
PROVIDERS: Emergency Medicine; Internal Medicine; Internal Medicine Cardiovascular Disease
DX: A41.9 Sepsis, unspecified organism (principal); J15.6 Pneumonia due to other Gram-negative bacteria; J96.21 Acute and chronic respiratory failure with hypoxia; I95.9 Hypotension, unspecified; E46 Unspecified protein-calorie malnutrition; F33.0 Major depressive disorder, recurrent, mild; E83.42 Hypomagnesemia; J44.0 Chronic obstructive pulmonary disease with (acute) lower respiratory infection; J45.901 Unspecified asthma with (acute) exacerbation; J44.1 Chronic obstructive pulmonary disease with (acute) exacerbation; Z68.1 Body mass index [BMI] 19.9 or less, adult; I25.10 Atherosclerotic heart disease of native coronary artery without angina pectoris; K21.0 Gastro-esophageal reflux disease with esophagitis; E03.9 Hypothyroidism, unspecified; G89.29 Other chronic pain; M54.9 Dorsalgia, unspecified; E78.2 Mixed hyperlipidemia; I49.8 Other specified cardiac arrhythmias; F17.210 Nicotine dependence, cigarettes, uncomplicated; F41.1 Generalized anxiety disorder; E78.5 Hyperlipidemia, unspecified; E87.6 Hypokalemia; E78.00 Pure hypercholesterolemia, unspecified; Z88.1 Allergy status to other antibiotic agents; Z79.899 Other long term (current) drug therapy; Z88.2 Allergy status to sulfonamides; Z79.82 Long term (current) use of aspirin; Z82.3 Family history of stroke; Z83.6 Family history of other diseases of the respiratory system; Z71.6 Tobacco abuse counseling; Z95.5 Presence of coronary angioplasty implant and graft; R00.8 Other abnormalities of heart beat; I49.3 Ventricular premature depolarization

== ENCOUNTER 2018-09-03 15:45 | Inpatient (IN) | payer OTHER ==
[~2018-09-03] VITALS: Ht 180.3 cm; Wt 61.9 kg
--- NOTE | ~2018-09-03 | WRIGHTHP ---
[place], [place] PATIENT HISTORY AND PHYSICAL EXAM NAME: [facility] FO[facility] [id number] UNIT #: [id number] ROOM: 507 DOCTOR: ZACH GUSMAN MD BIRTHDATE: [birth year] DOS: 09/03/2018 HISTORY OF PRESENT ILLNESS: The patient is a 53-year-old gentleman who presented to my office with complaints of recurrent chest tightness, some increased shortness of breath and cough. The patient is a high risk for coronary artery disease, because of being male, 53 years old with significant history of smoking cigarettes, coronary artery disease and he was admitted to [facility] for ruling out for acute [place] and a cardiac stress testing. After admission, the patient has done well. Breathing is improving with treatment. REVIEW OF SYSTEMS: CARDIOVASCULAR: Complains of recurrent chest tightness and pain. RESPIRATORY: Increasing shortness of breath and wheezing along with cough. GASTROINTESTINAL: No nausea, vomiting, diarrhea or constipation. FAMILY HISTORY: Noncontributory. SOCIAL HISTORY: Continues to smoke cigarettes. Denies any alcohol or drug abuse. ALLERGIES: KNOWN ALLERGIES TO SULFUR, QUINOLONES. PHYSICAL EXAMINATION: GENERAL: Alert and oriented x 3. VITAL SIGNS: Blood pressure 120/76, heart rate 71 beats per minute, breathing 18 times per minute, afebrile. HEENT AND NECK: Extraocular movements are intact. Sclerae are anicteric. Oral mucosa is moist and clean. No obvious facial weakness. Neck is supple without any lymphadenopathy. No thyromegaly. No JVD. No carotid arterial bruits. LUNGS: Generalized weakness and decreased breath sounds all over on lung auscultation. Mild expiratory wheezing. CARDIOVASCULAR SYSTEM: Heart rate is regular in rate and rhythm. S1 and S2 normally audible. No significant murmur or any other abnormal cardiac sounds. ABDOMEN: Soft, nontender. No obvious organomegaly. Bowel sounds are present. No obvious herniation. EXTREMITIES: Without significant cyanosis or edema. Warm to touch. CENTRAL NERVOUS SYSTEM: Alert and oriented x 3. Cranial nerves II-XII are intact. Speech is normal. The patient is able to move all extremities. Normal muscle strength. Deep tendon reflexes are equal on both sides. Plantars were downgoing. LABORATORY DATA: Two, cardiac enzymes negative. Third one is pending. IMPRESSION: 1. The patient with chest pains from uncertain etiology with the patient being a high risk for acute [place]. The patient has previous history of coronary artery disease, still smokes cigarettes. He is a 53-year-old male. His cardiac [place], [place] PATIENT HISTORY AND PHYSICAL EXAM NAME: ARELIS FOLEY UNIT #: [id number] ROOM: 507 DOCTOR: ZACH GUSMAN MD BIRTHDATE: [birth year] enzymes have been negative. He is scheduled for a cardiac stress test this morning. The patient also has history of hyperlipidemia. 2. Mixed hyperlipidemia, treated with Lipitor. 3. Hypothyroidism, replaced with levothyroxine. 4. History of coronary artery disease. The patient remains on aspirin and Plavix. 5. Major depression, recurrent, mild, treated and controlled with Zoloft. 6. Severe anxiety disorder, treated with clonazepam and Zoloft, reasonably controlled. 7. Lumbar spondylosis and chronic lower back pains treated and controlled with Vicodin, which has been continued. The patient also takes amitriptyline. 8. Nicotine smoke dependence. The patient encouraged to stop smoking cigarettes and bad effect of cigarette smoke on his health have been explained to him. ZACH GUSMAN MD CM:HISPHYS:PATIENT HISTORY AND PHYSICAL EXAMINATION 9 ZACH GUSMAN MD 09/04/18 1000 interface
--- NOTE | ~2018-09-03 | ST ---
[place], [place] EXERCISE STRESS TEST REPORT NAME: ARELIS FOLEY UNIT #: [id number] ROOM: 507 DOCTOR: UZMA MALIK,ZACH Lomas BIRTHDATE: [birth year] DOS: 09/04/2018 LEXISCAN CARDIOLITE STRESS TEST The patient presently admitted to [facility] with complaints of chest pressure and tightness, which has resolved. Cardiac enzymes are negative. The patient was infused with Lexiscan 0.4 mg, followed by a nuclear injection over 40 seconds. The patient's blood pressure ranged between 88 systolic over 58 diastolic to 118 systolic over 66 diastolic. The patient remained symptom free except for felt somewhat lightheaded. The patient's baseline EKG showed normal sinus rhythm, normal cardiac axis, no significant ST-T changes during Lexiscan infusion and recovery phase. IMPRESSION: 1. Normal EKG part of the Lexiscan Cardiolite stress test. 2. Nuclear scan results to be reported by Dr. Ny, the parking attendant later today. ZACH GUSMAN MD CM:STRESS:EXERCISE STRESS TEST REPORT [id number] ZACH GUSMAN MD
--- NOTE | ~2018-09-03 | DS ---
[place], [place] DISCHARGE SUMMARY NAME: ARELIS FOLEY [facility] #: [id number] UNIT #: [id number] ROOM: 507 DOCTOR: ZACH GUSMAN MD BIRTHDATE: [birth year] DOS: 09/05/2018 DISCHARGE DIAGNOSES: 1. Chest pains from uncertain etiology. The patient has normal cardiac stress test. 2. Acute exacerbation of severe underlying chronic obstructive pulmonary disease, improved with treatment. 3. Coronary artery disease of the [place] vessels. 4. Mixed hyperlipidemia. 5. Hypothyroidism. 6. Major depression, recurrent, mild. 7. Severe generalized anxiety disorder. 8. Lumbar spondylosis with chronic lower back pains. 9. Nicotine smoke dependence. HOSPITAL COURSE: The patient was admitted when he presented to my office with increased complaints of shortness of breath, wheezing and also chest pressure sensation off and on. The patient is having some difficulty in breathing. The patient was admitted and ruled out for myocardial infarction with serial cardiac enzymes and finally taken for a cardiac stress test, which was normal. 1. Acute exacerbation of severe underlying COPD with increased shortness of breath, cough, wheezing and chest congestion. The patient was treated with corticosteroids, oxygen, nebulizer treatments, bronchodilators and antibiotic and his breathing has improved and he is being discharged to home to follow with me in the office next week. 2. History of coronary artery disease of the [place] vessels, now chest pain free. 3. Hypothyroidism, treated with thyroid supplements. The patient remains on levothyroxine. 4. Mixed type hyperlipidemia, treated with Lipitor. 5. Nicotine smoke dependence and advanced emphysema. The patient encouraged to stop smoking cigarettes. LABORATORY DATA: Negative cardiac enzymes. Blood sugar elevated to 125. White cell count of 11,000, hemoglobin 12.8, normal platelets. Normal cardiac stress test. DISCHARGE MANAGEMENT: Zoloft 100 mg a day, Plavix 75 mg a day, aspirin 325 mg a day, Protonix 40 mg a day, levothyroxine 25 mcg daily, Medrol Dosepak, amitriptyline 100 mg a day, Lipitor 20 mg a day, DuoNebs every 4 hours as needed, Singulair 10 mg a day, clonazepam 1 mg t.i.d. p.r.n. for anxiety, Vicodin t.i.d. p.r.n. for pain. [place], [place] DISCHARGE SUMMARY NAME: ARELIS FOLEY UNIT #: [id number] ROOM: 507 DOCTOR: ZACH GUSMAN MD BIRTHDATE: [birth year] ZACH GUSMAN MD CM:GLORIA [id number] ZACH GUSMAN MD 09/05/18 1430 interface
[~2018-09-03 15:45] MED LIST changes: +CEFUROXIME AXE250 MG PO; +CLOPIDOGREL75 MG PO; +NORCO 7.5-3251 EACH PO; +PLAVIX75 M1 PO; -PLAVIX75 MG; +PREDNISONE5 MG PO
[2018-09-03 16:10] VITALS: BP 121/78
[2018-09-03 20:00] VITALS: BP 110/73
[2018-09-04] VITALS: BP 114/67
[2018-09-04 08:00] VITALS: BP 120/76
[2018-09-04 10:21] LABS: BASO % 0.2 % (0.0-1.0); EOS % 0.1 % (1.0-4.0); HEMATOCRIT 38.8 % (42.0-52.0); HEMOGLOBIN 12.8 g/dl (14.0-18.0); LYMPH # 1.1 10*3/uL (1.3-4.4); LYMPH % 9.8 % (27.0-41.0); MEAN CELL VOLUME 93.7 fl (80.0-94.0); MEAN CORPUSCULAR HGB 30.9 pg (27.0-31.0); MEAN PLATELET VOLUME 9.2 fl (9.6-12.3); MONO # 0.1 10*3/uL (0.1-1.0); MONO % 0.7 % (3.0-9.0); NEUT # 9.6 10*3/uL (2.3-7.9); NEUT % 88.1 % (47.0-73.0); PLATELET COUNT AUTOMATED 267 10*3/uL (130-400); RED BLOOD COUNT 4.14 10*6/uL (4.50-5.90); RED CELL DISTRI WIDTH 12.9 % (0-14.5); WHITE BLOOD COUNT 10.9 10*3/uL (4.8-10.8)
[2018-09-04 10:36] LABS: ALBUMIN 3.4 gm/dl (3.1-4.5); ALKALINE PHOSPHATASE 56 U/L (45-117); BUN 15 mg/dl (7-24); CHLORIDE 100 mmol/L (98-107); CREATININE 0.77 mg/dL (0.70-1.30); POTASSIUM 4.5 mmol/L (3.5-5.1); SGOT/AST 20 IU/L (3-35); SGPT/ALT 37 U/L (12-78); SODIUM 139 mmol/L (136-145)
[2018-09-04 12:00] VITALS: BP 127/74
[2018-09-04 14:00] VITALS: BP 127/74
[2018-09-04 16:00] VITALS: BP 130/75
[2018-09-04 20:00] VITALS: BP 129/82
[2018-09-05] VITALS: BP 109/70
[2018-09-05 08:00] VITALS: BP 118/82
[2018-09-05 12:00] VITALS: BP 130/78
[2018-09-05] MEDS ORDERED: MEDROL DOSEPAK4 MG PO (13:53)
[2018-09-05] MEDS ORDERED: AUGMENTIN 875-875 MG PO (13:53)
== END 2018-09-05 15:10 | disposition home or self-care (01) | DRG 191 ==
LOC: 5E 15:45
PROVIDERS: Internal Medicine
PROC: 4A02XM4 Measurement of Cardiac Total Activity, External Approach (ICD-10-PCS; principal; 2018-09-04)
PROC: 3E073KZ Introduction of Other Diagnostic Substance into Coronary Artery, Percutaneous Approach (ICD-10-PCS; 2018-09-04)
DX: J44.1 Chronic obstructive pulmonary disease with (acute) exacerbation (principal); F33.0 Major depressive disorder, recurrent, mild; R07.9 Chest pain, unspecified; E78.2 Mixed hyperlipidemia; E03.9 Hypothyroidism, unspecified; F17.210 Nicotine dependence, cigarettes, uncomplicated; I25.10 Atherosclerotic heart disease of native coronary artery without angina pectoris; F41.1 Generalized anxiety disorder; M47.896 Other spondylosis, lumbar region; G89.29 Other chronic pain; Z88.2 Allergy status to sulfonamides

== ENCOUNTER 2019-11-27 18:25 | Inpatient (IN) | payer MEDICARE, MEDICAID ==
[~2019-11-27] VITALS: Ht 180.3 cm; Wt 45.0 kg
[~2019-11-27 18:25] MED LIST changes: +AUGMENTIN 875-875 MG PO; +MEDROL DOSEPAK4 MG PO
[2019-11-27 18:45] VITALS: BP 115/88
[2019-11-27 19:08] LABS: BASO % 0.1 % (0.0-1.0); EOS % 0.2 % (1.0-4.0); HEMATOCRIT 45.5 % (42.0-52.0); LYMPH % 4.8 % (27.0-41.0); MEAN CELL VOLUME 91.9 fl (80.0-94.0); MEAN CORPUSCULAR HGB 30.3 pg (27.0-31.0); MEAN PLATELET VOLUME 9.4 fl (9.6-12.3); MONO % 4.8 % (3.0-9.0); NEUT # 18.9 10*3/uL (2.3-7.9); NEUT % 88.7 % (47.0-73.0); PLATELET COUNT AUTOMATED 330 10*3/uL (130-400); RED BLOOD COUNT 4.95 10*6/uL (4.50-5.90); RED CELL DISTRI WIDTH 12.1 % (0-14.5); WHITE BLOOD COUNT 21.4 10*3/uL (4.8-10.8)
[2019-11-27 19:19] LABS: ACT PARTIAL THROMBO TIME 25.4 SECONDS (20.0-32.1)
[2019-11-27 19:24] LABS: ALBUMIN 3.4 gm/dl (3.1-4.5); ALKALINE PHOSPHATASE 53 U/L (45-117); BUN 29 mg/dl (7-24); CHLORIDE 96 mmol/L (98-107); CREATININE 0.81 mg/dL (0.70-1.30); POTASSIUM 4.3 mmol/L (3.5-5.1); SGOT/AST 19 IU/L (3-35); SGPT/ALT 38 U/L (12-78); SODIUM 136 mmol/L (136-145); TOTAL PROTEIN 7.6 gm/dL (6.4-8.2)
[2019-11-27 19:25] LABS: TROPONIN I 0.032 ng/ml (<0.045)
[2019-11-27 19:44] VITALS: BP 108/87
[2019-11-27 21:21] VITALS: BP 106/83
[2019-11-27 22:35] VITALS: BP 111/84
[2019-11-27 22:45] VITALS: BP 170/91
[2019-11-28 06:00] VITALS: BP 113/72
[2019-11-28 08:00] VITALS: BP 140/90
[2019-11-28 12:00] VITALS: BP 148/84; BP 163/98
[2019-11-28 14:57] LABS: ABG BASE EXCESS 8.3 mmol/L (-2.0-2.0); ARTERIAL BLOOD GAS PH 7.442 (7.35-7.45)
[2019-11-28 16:00] VITALS: BP 161/85
[2019-11-28 20:00] VITALS: BP 140/70
[2019-11-29] VITALS: BP 125/67
[2019-11-29 06:39] LABS: HEMATOCRIT 36.8 % (42.0-52.0); HEMOGLOBIN 12.3 g/dl (14.0-18.0); MEAN CORPUSCULAR HGB 30.8 pg (27.0-31.0); MEAN CORPUSCULAR HGB CONC 33.4 g/dl (33.0-37.0); MEAN PLATELET VOLUME 9.4 fl (9.6-12.3); PLATELET COUNT AUTOMATED 252 10*3/uL (130-400); WHITE BLOOD COUNT 15.9 10*3/uL (4.8-10.8)
[2019-11-29 06:50] LABS: CHLORIDE 101 mmol/L (98-107); CREATININE 0.43 mg/dL (0.70-1.30); POTASSIUM 4.4 mmol/L (3.5-5.1); SODIUM 138 mmol/L (136-145)
[2019-11-29 06:52] LABS: BUN 19 mg/dl (7-24)
[2019-11-29 07:59] LABS: TOTAL CELLS COUNTED 100 #CELLS
[2019-11-29 08:00] VITALS: BP 145/75
[2019-11-29 08:01] LABS: PLATELET SUFFICIENCY NORMAL (NORMAL)
[2019-11-29 12:00] VITALS: BP 152/62
[2019-11-29 16:00] VITALS: BP 113/71
[2019-11-29 20:00] VITALS: BP 123/82
[2019-11-30] VITALS: BP 121/82
[2019-11-30 08:00] VITALS: BP 138/74
[2019-11-30 12:00] VITALS: BP 145/79
[2019-11-30 16:00] VITALS: BP 145/85
[2019-11-30] MEDS ORDERED: BUPROPION HYDR100 MG PO (17:12)
[2019-11-30] MEDS ORDERED: SPIRIVA -- 3018 MCG INH (17:16)
[2019-11-30 20:00] VITALS: BP 132/85
[2019-12-01] VITALS (9 sets, daily range): BP systolic 113–151; BP diastolic 70–94
[2019-12-02] VITALS: BP 120/71
[2019-12-02 08:00] VITALS: BP 116/85
[2019-12-02 12:00] VITALS: BP 150/96
[2019-12-02 14:09] LABS: ACID FAST SPEC PROCESSING Concentration (.)
[2019-12-02 16:00] VITALS: BP 146/80; BP 146/99
[2019-12-02 20:00] VITALS: BP 144/89
[2019-12-03] VITALS: BP 141/93
[2019-12-03 08:00] VITALS: BP 130/80
[2019-12-03 12:00] VITALS: BP 130/78
[2019-12-03 16:00] VITALS: BP 137/80
[2019-12-03 20:00] VITALS: BP 184/93
[2019-12-04] VITALS: BP 142/93
[2019-12-04 06:32] LABS: HEMATOCRIT 37.8 % (42.0-52.0); HEMOGLOBIN 11.9 g/dl (14.0-18.0); MEAN CELL VOLUME 94.7 fl (80.0-94.0); MEAN CORPUSCULAR HGB 29.8 pg (27.0-31.0); MEAN CORPUSCULAR HGB CONC 31.5 g/dl (33.0-37.0); MEAN PLATELET VOLUME 8.8 fl (9.6-12.3); PLATELET COUNT AUTOMATED 269 10*3/uL (130-400); RED BLOOD COUNT 3.99 10*6/uL (4.50-5.90); RED CELL DISTRI WIDTH 12.1 % (0-14.5); WHITE BLOOD COUNT 14.2 10*3/uL (4.8-10.8)
[2019-12-04 06:59] LABS: BUN 23 mg/dl (7-24); CHLORIDE 100 mmol/L (98-107); CREATININE 0.54 mg/dL (0.70-1.30); POTASSIUM 4.4 mmol/L (3.5-5.1); SODIUM 141 mmol/L (136-145)
[2019-12-04 07:28] LABS: TOTAL CELLS COUNTED 100 #CELLS
[2019-12-04 07:29] LABS: PLATELET SUFFICIENCY NORMAL (NORMAL); STOMATOCYTE FEW
[2019-12-04 08:00] VITALS: BP 158/88
[2019-12-04] MEDS ORDERED: FLUCONAZOLE100 MG PO (08:55)
[2019-12-04] MEDS ORDERED: MERREM IV1 GM IV (08:56)
[2019-12-04 12:00] VITALS: BP 141/93
== END 2019-12-04 14:29 | disposition other institution (70) | DRG 177 ==
LOC: ED 18:25 → 5E 21:52 → EDHOLD 21:52 → 5E 22:37
PROVIDERS: Emergency Medicine; Internal Medicine Critical Care Medicine; ADMIT Internal Medicine
PROC: 0BC38ZZ Extirpation of Matter from Right Main Bronchus, Via Natural or Artificial Opening Endoscopic (ICD-10-PCS; principal; 2019-12-01)
PROC: 0BC88ZZ Extirpation of Matter from Left Upper Lobe Bronchus, Via Natural or Artificial Opening Endoscopic (ICD-10-PCS; principal; 2019-12-01)
PROC: 0BC78ZZ Extirpation of Matter from Left Main Bronchus, Via Natural or Artificial Opening Endoscopic (ICD-10-PCS; principal; 2019-12-01)
PROC: 0BC58ZZ Extirpation of Matter from Right Middle Lobe Bronchus, Via Natural or Artificial Opening Endoscopic (ICD-10-PCS; principal; 2019-12-01)
PROC: 0BCB8ZZ Extirpation of Matter from Left Lower Lobe Bronchus, Via Natural or Artificial Opening Endoscopic (ICD-10-PCS; principal; 2019-12-01)
PROC: 0BC18ZZ Extirpation of Matter from Trachea, Via Natural or Artificial Opening Endoscopic (ICD-10-PCS; principal; 2019-12-01)
PROC: 0BC98ZZ Extirpation of Matter from Lingula Bronchus, Via Natural or Artificial Opening Endoscopic (ICD-10-PCS; principal; 2019-12-01)
PROC: 0BC48ZZ Extirpation of Matter from Right Upper Lobe Bronchus, Via Natural or Artificial Opening Endoscopic (ICD-10-PCS; principal; 2019-12-01)
PROC: 0BC68ZZ Extirpation of Matter from Right Lower Lobe Bronchus, Via Natural or Artificial Opening Endoscopic (ICD-10-PCS; principal; 2019-12-01)
PROC: 0BC28ZZ Extirpation of Matter from Carina, Via Natural or Artificial Opening Endoscopic (ICD-10-PCS; principal; 2019-12-01)
DX: J11.08 Influenza due to unidentified influenza virus with specified pneumonia (principal); E43 Unspecified severe protein-calorie malnutrition; J15.1 Pneumonia due to Pseudomonas; J96.22 Acute and chronic respiratory failure with hypercapnia; J96.21 Acute and chronic respiratory failure with hypoxia; J44.1 Chronic obstructive pulmonary disease with (acute) exacerbation; J44.0 Chronic obstructive pulmonary disease with (acute) lower respiratory infection; F33.0 Major depressive disorder, recurrent, mild; Z68.1 Body mass index [BMI] 19.9 or less, adult; E87.3 Alkalosis; J20.9 Acute bronchitis, unspecified; E78.00 Pure hypercholesterolemia, unspecified; B37.9 Candidiasis, unspecified; B96.5 Pseudomonas (aeruginosa) (mallei) (pseudomallei) as the cause of diseases classified elsewhere; M54.5 Low back pain; G89.29 Other chronic pain; E03.9 Hypothyroidism, unspecified; J44.9 Chronic obstructive pulmonary disease, unspecified; R62.7 Adult failure to thrive; I25.10 Atherosclerotic heart disease of native coronary artery without angina pectoris; E78.2 Mixed hyperlipidemia; F17.210 Nicotine dependence, cigarettes, uncomplicated; J98.09 Other diseases of bronchus, not elsewhere classified; F41.1 Generalized anxiety disorder; Z71.6 Tobacco abuse counseling; Z88.1 Allergy status to other antibiotic agents

== ENCOUNTER 2021-06-25 13:35 | Emergency (ER) | payer OTHER ==
[~2021-06-25] VITALS: Ht 180.3 cm; Wt 54.4 kg
[~2021-06-25 13:35] MED LIST changes: +BUPROPION HYDR100 MG PO; +FLUCONAZOLE100 MG PO; +MERREM IV1 GM IV; +SPIRIVA -- 3018 MCG INH
[2021-06-25 15:38] LABS: BASO % 0.6 % (0.0-1.0); EOS # 0.1 10*3/uL (0.0-0.4); EOS % 1.2 % (1.0-4.0); HEMATOCRIT 35.5 % (42.0-52.0); LYMPH # 1.7 10*3/uL (1.3-4.4); LYMPH % 25.3 % (27.0-41.0); MEAN CELL VOLUME 89.4 fl (80.0-94.0); MEAN CORPUSCULAR HGB 29.2 pg (27.0-31.0); MEAN CORPUSCULAR HGB CONC 32.7 g/dl (33.0-37.0); MEAN PLATELET VOLUME 8.8 fl (9.6-12.3); MONO # 0.7 10*3/uL (0.1-1.0); MONO % 10.4 % (3.0-9.0); NEUT # 4.3 10*3/uL (2.3-7.9); NEUT % 62.1 % (47.0-73.0); PLATELET COUNT AUTOMATED 209 10*3/uL (130-400); RED BLOOD COUNT 3.97 10*6/uL (4.50-5.90); RED CELL DISTRI WIDTH 12.8 % (0-14.5); WHITE BLOOD COUNT 6.9 10*3/uL (4.8-10.8)
[2021-06-25 15:57] LABS: ALBUMIN 3.7 gm/dl (3.1-4.5); ALKALINE PHOSPHATASE 52 U/L (45-117); BUN 13 mg/dl (7-24); CHLORIDE 100 mmol/L (98-107); CPK 75 U/L (39-308); CREATININE 0.93 mg/dL (0.70-1.30); LIPASE 59 U/L (73-393); POTASSIUM 3.9 mmol/L (3.5-5.1); SGOT/AST 23 IU/L (3-35); SGPT/ALT 27 U/L (12-78); SODIUM 139 mmol/L (136-145); TOTAL PROTEIN 7.3 gm/dL (6.4-8.2)
[2021-06-25 16:06] LABS: TROPONIN I < 0.015 ng/ml (<0.045)
[2021-06-26] MEDS ORDERED: DEXAMETHASONE6 MG PO (10:59)
[2021-07-07] MEDS ORDERED: PROVENTIL HFA6.7 GM INH (23:05)
[2021-07-07] MEDS ORDERED: PREDNISONE20 M1 PO (23:05)
== END 2021-06-25 21:31 | disposition home or self-care (01) ==
LOC: ED 13:35
PROVIDERS: Nurse Practitioner Family
DX: U07.1 COVID-19 (principal); R04.2 Hemoptysis; I25.2 Old myocardial infarction; J44.9 Chronic obstructive pulmonary disease, unspecified; K21.9 Gastro-esophageal reflux disease without esophagitis; F17.200 Nicotine dependence, unspecified, uncomplicated; Z79.899 Other long term (current) drug therapy; Z79.82 Long term (current) use of aspirin; Z88.1 Allergy status to other antibiotic agents; Z88.8 Allergy status to other drugs, medicaments and biological substances

== ENCOUNTER 2021-07-07 17:06 | Emergency (ER) | payer OTHER ==
[~2021-07-07] VITALS: Ht 180.3 cm; Wt 53.5 kg
[~2021-07-07 17:06] MED LIST changes: +DEXAMETHASONE6 MG PO
[2021-07-07 21:45] LABS: HEMATOCRIT 34.1 % (42.0-52.0); MEAN CORPUSCULAR HGB 29.1 pg (27.0-31.0); MEAN CORPUSCULAR HGB CONC 33.4 g/dl (33.0-37.0); MEAN PLATELET VOLUME 8.4 fl (9.6-12.3); PLATELET COUNT AUTOMATED 316 10*3/uL (130-400); RED BLOOD COUNT 3.92 10*6/uL (4.50-5.90); RED CELL DISTRI WIDTH 12.5 % (0-14.5); WHITE BLOOD COUNT 13.1 10*3/uL (4.8-10.8)
[2021-07-07 21:57] LABS: ACT PARTIAL THROMBO TIME 25.1 SECONDS (20.0-32.1)
[2021-07-07 22:03] LABS: ALBUMIN 2.9 gm/dl (3.1-4.5); ALKALINE PHOSPHATASE 50 U/L (45-117); BUN 12 mg/dl (7-24); CHLORIDE 100 mmol/L (98-107); CREATININE 0.95 mg/dL (0.70-1.30); LIPASE 72 U/L (73-393); POTASSIUM 2.9 mmol/L (3.5-5.1); SGOT/AST 14 IU/L (3-35); SGPT/ALT 26 U/L (12-78); SODIUM 137 mmol/L (136-145); TOTAL PROTEIN 6.7 gm/dL (6.4-8.2); TROPONIN I < 0.015 ng/ml (<0.045)
[2021-07-07 22:07] LABS: TOTAL CELLS COUNTED 100 #CELLS
[2021-07-07 22:08] LABS: PLATELET SUFFICIENCY NORMAL (NORMAL)
[2021-07-07 22:09] LABS: OVALOCYTES FEW
[2021-07-07] MEDS ORDERED: PREDNISONE20 M1 PO ×2 (23:05)
[2021-07-07] MEDS ORDERED: PROVENTIL HFA6.7 GM INH ×2 (23:05)
[2021-07-16] MEDS ORDERED: AMLODIPINE BESYL5 MG PO (12:56)
[2021-07-16] MEDS ORDERED: ROSUVASTATIN CA40 MG PO (12:56)
[2021-07-18] MEDS ORDERED: AUGMENTIN 875-875 MG PO (12:30)
[2021-07-18] MEDS ORDERED: MEDROL DOSEPAK4 MG PO (12:30)
== END 2021-07-08 01:44 | disposition home or self-care (01) ==
LOC: ED 17:06
PROVIDERS: Physician Assistant
DX: I10 Essential (primary) hypertension (principal)

== ENCOUNTER 2021-08-01 09:12 | Inpatient (IN) | payer OTHER ==
[~2021-08-01] VITALS: Ht 180.3 cm; Wt 55.8 kg
[~2021-08-01 09:12] MED LIST changes: +AMLODIPINE BESYL5 MG PO; +PROVENTIL HFA6.7 GM INH; +ROSUVASTATIN CA40 MG PO
[2021-08-01 09:23] VITALS: BP 155/73
[2021-08-01 09:44] LABS: BASO % 0.2 % (0.0-1.0); EOS # 0.2 10*3/uL (0.0-0.4); HEMATOCRIT 30.6 % (42.0-52.0); LYMPH # 1.4 10*3/uL (1.3-4.4); LYMPH % 15.3 % (27.0-41.0); MEAN CELL VOLUME 89.7 fl (80.0-94.0); MEAN CORPUSCULAR HGB CONC 32.4 g/dl (33.0-37.0); MEAN PLATELET VOLUME 8.3 fl (9.6-12.3); MONO # 0.9 10*3/uL (0.1-1.0); MONO % 9.9 % (3.0-9.0); NEUT # 6.4 10*3/uL (2.3-7.9); PLATELET COUNT AUTOMATED 232 10*3/uL (130-400); RED BLOOD COUNT 3.41 10*6/uL (4.50-5.90); RED CELL DISTRI WIDTH 12.8 % (0-14.5); WHITE BLOOD COUNT 8.8 10*3/uL (4.8-10.8)
[2021-08-01 10:01] LABS: ALBUMIN 2.5 gm/dl (3.1-4.5); ALKALINE PHOSPHATASE 53 U/L (45-117); BUN 7 mg/dl (7-24); CHLORIDE 102 mmol/L (98-107); CREATININE 0.78 mg/dL (0.70-1.30); POTASSIUM 3.8 mmol/L (3.5-5.1); SGOT/AST 22 IU/L (3-35); SGPT/ALT 22 U/L (12-78); SODIUM 136 mmol/L (136-145); TOTAL PROTEIN 7.1 gm/dL (6.4-8.2)
[2021-08-01 10:05] LABS: TROPONIN I < 0.015 ng/ml (<0.045)
[2021-08-01 10:08] LABS: ACT PARTIAL THROMBO TIME 29.9 SECONDS (20.0-32.1)
[2021-08-01 12:33] VITALS: BP 126/86
[2021-08-01 19:26] VITALS: BP 113/75
[2021-08-01 21:32] VITALS: BP 123/76
[2021-08-01] MEDS ORDERED: SPIRIVA RESPIMAT4 GM INH (22:17)
[2021-08-01] MEDS ORDERED: HYDROCODON-ACE118 ML PO (22:23)
[2021-08-01] MEDS ORDERED: LEVOTHYROXINE50 MCG PO (22:24)
[2021-08-02] VITALS: BP 114/79
[2021-08-02 06:19] LABS: LYMPH # 0.7 10*3/uL (1.3-4.4); LYMPH % 13.1 % (27.0-41.0); MEAN CELL VOLUME 90.1 fl (80.0-94.0); MEAN CORPUSCULAR HGB 28.6 pg (27.0-31.0); MEAN CORPUSCULAR HGB CONC 31.7 g/dl (33.0-37.0); MEAN PLATELET VOLUME 8.5 fl (9.6-12.3); MONO # 0.1 10*3/uL (0.1-1.0); MONO % 2.8 % (3.0-9.0); NEUT # 4.1 10*3/uL (2.3-7.9); NEUT % 83.5 % (47.0-73.0); PLATELET COUNT AUTOMATED 242 10*3/uL (130-400); RED BLOOD COUNT 3.22 10*6/uL (4.50-5.90); RED CELL DISTRI WIDTH 12.5 % (0-14.5)
[2021-08-02 06:24] LABS: ALBUMIN 2.2 gm/dl (3.1-4.5); BUN 14 mg/dl (7-24); CHLORIDE 102 mmol/L (98-107); CREATININE 0.65 mg/dL (0.70-1.30); POTASSIUM 4.5 mmol/L (3.5-5.1); SGOT/AST 13 IU/L (3-35); SODIUM 138 mmol/L (136-145)
[2021-08-02 06:25] LABS: ALKALINE PHOSPHATASE 47 U/L (45-117); SGPT/ALT 18 U/L (12-78); TOTAL PROTEIN 6.5 gm/dL (6.4-8.2)
[2021-08-02 08:00] VITALS: BP 117/77
[2021-08-02 12:00] VITALS: BP 111/94
[2021-08-02 16:00] VITALS: BP 133/79
[2021-08-02 20:00] VITALS: BP 130/74
[2021-08-03] VITALS: BP 131/77
[2021-08-03 06:35] LABS: HEMATOCRIT 27.3 % (42.0-52.0); MEAN CELL VOLUME 88.3 fl (80.0-94.0); MEAN CORPUSCULAR HGB 28.8 pg (27.0-31.0); MEAN CORPUSCULAR HGB CONC 32.6 g/dl (33.0-37.0); MEAN PLATELET VOLUME 8.6 fl (9.6-12.3); PLATELET COUNT AUTOMATED 300 10*3/uL (130-400); RED BLOOD COUNT 3.09 10*6/uL (4.50-5.90); RED CELL DISTRI WIDTH 12.8 % (0-14.5); WHITE BLOOD COUNT 13.2 10*3/uL (4.8-10.8)
[2021-08-03 06:45] LABS: ALBUMIN 2.3 gm/dl (3.1-4.5); BUN 17 mg/dl (7-24); CHLORIDE 104 mmol/L (98-107); POTASSIUM 3.9 mmol/L (3.5-5.1); SODIUM 140 mmol/L (136-145)
[2021-08-03 06:49] LABS: ALKALINE PHOSPHATASE 45 U/L (45-117); CREATININE 0.68 mg/dL (0.70-1.30); SGOT/AST 16 IU/L (3-35); SGPT/ALT 24 U/L (12-78); TOTAL PROTEIN 6.2 gm/dL (6.4-8.2)
[2021-08-03 07:40] LABS: OVALOCYTES FEW; PLATELET SUFFICIENCY NORMAL (NORMAL); POLYCHROMASIA SLIGHT; ROULEAUX SLIGHT; SCHISTOCYTES FEW; TOTAL CELLS COUNTED 100 #CELLS
[2021-08-03 08:00] VITALS: BP 125/73
[2021-08-03] MEDS ORDERED: AUGMENTIN 875-875 MG PO ×2 (09:54)
[2021-08-03] MEDS ORDERED: MEDROL DOSEPAK4 MG PO ×2 (09:54)
== END 2021-08-03 11:26 | disposition home or self-care (01) | DRG 205 ==
LOC: ED 09:12 → EDHOLD 11:40 → 4E 11:40 → EDHOLD 12:02 → 4E 20:44
PROVIDERS: Emergency Medicine; Internal Medicine Critical Care Medicine; ADMIT Internal Medicine; ATTEND Internal Medicine
DX: M94.0 Chondrocostal junction syndrome [Tietze] (principal); J96.20 Acute and chronic respiratory failure, unspecified whether with hypoxia or hypercapnia; J44.1 Chronic obstructive pulmonary disease with (acute) exacerbation; F33.0 Major depressive disorder, recurrent, mild; Z68.1 Body mass index [BMI] 19.9 or less, adult; E44.0 Moderate protein-calorie malnutrition; R07.9 Chest pain, unspecified; F41.1 Generalized anxiety disorder; E78.2 Mixed hyperlipidemia; F17.210 Nicotine dependence, cigarettes, uncomplicated; I10 Essential (primary) hypertension; D63.8 Anemia in other chronic diseases classified elsewhere; M47.816 Spondylosis without myelopathy or radiculopathy, lumbar region; G89.29 Other chronic pain; M54.50 Low back pain, unspecified; R62.7 Adult failure to thrive; E03.9 Hypothyroidism, unspecified; Z88.8 Allergy status to other drugs, medicaments and biological substances; Z88.2 Allergy status to sulfonamides; Z88.1 Allergy status to other antibiotic agents; Z82.5 Family history of asthma and other chronic lower respiratory diseases

== ENCOUNTER 2021-08-14 15:13 | Emergency (ER) | payer OTHER ==
[~2021-08-14] VITALS: Wt 54.4 kg
[~2021-08-14 15:13] MED LIST changes: +HYDROCODON-ACE118 ML PO; +LEVOTHYROXINE50 MCG PO; +SPIRIVA RESPIMAT4 GM INH
[2021-08-14 15:58] LABS: HEMATOCRIT 29.5 % (42.0-52.0); MEAN CELL VOLUME 89.7 fl (80.0-94.0); MEAN CORPUSCULAR HGB CONC 31.2 g/dl (33.0-37.0); PLATELET COUNT AUTOMATED 365 10*3/uL (130-400); RED BLOOD COUNT 3.29 10*6/uL (4.50-5.90); RED CELL DISTRI WIDTH 12.9 % (0-14.5); WHITE BLOOD COUNT 12.6 10*3/uL (4.8-10.8)
[2021-08-14 16:17] LABS: BASOPHILS 1 % (0-1); PLATELET SUFFICIENCY NORMAL (NORMAL); TOTAL CELLS COUNTED 100 #CELLS
[2021-08-14 16:30] LABS: ALBUMIN 2.5 gm/dl (3.1-4.5); ALKALINE PHOSPHATASE 63 U/L (45-117); BUN 7 mg/dl (7-24); CHLORIDE 101 mmol/L (98-107); CREATININE 0.69 mg/dL (0.70-1.30); POTASSIUM 3.6 mmol/L (3.5-5.1); SGOT/AST 15 IU/L (3-35); SGPT/ALT 29 U/L (12-78); SODIUM 138 mmol/L (136-145)
[2021-08-14 16:34] LABS: TROPONIN I < 0.015 ng/ml (<0.045)
[2021-08-14] MEDS ORDERED: PREDNISONE50 MG PO (18:08)
[2021-08-14] MEDS ORDERED: VIBRAMYCIN100 MG PO (18:08)
== END 2021-08-14 18:11 | disposition home or self-care (01) ==
LOC: ED 15:13
PROVIDERS: Emergency Medicine
DX: J44.1 Chronic obstructive pulmonary disease with (acute) exacerbation (principal); J44.9 Chronic obstructive pulmonary disease, unspecified; I25.10 Atherosclerotic heart disease of native coronary artery without angina pectoris; K21.9 Gastro-esophageal reflux disease without esophagitis; E78.5 Hyperlipidemia, unspecified; Z88.1 Allergy status to other antibiotic agents; Z79.899 Other long term (current) drug therapy

== ENCOUNTER 2021-09-03 15:27 | Emergency (ER) | payer OTHER ==
[~2021-09-03 15:27] MED LIST changes: +PREDNISONE50 MG PO; +VIBRAMYCIN100 MG PO
[2021-09-03 16:56] LABS: BASO # 0.1 10*3/uL (0.0-0.1); BASO % 0.6 % (0.0-1.0); EOS # 0.2 10*3/uL (0.0-0.4); LYMPH # 1.8 10*3/uL (1.3-4.4); LYMPH % 20.6 % (27.0-41.0); MEAN CELL VOLUME 91.2 fl (80.0-94.0); MEAN CORPUSCULAR HGB 27.9 pg (27.0-31.0); MEAN CORPUSCULAR HGB CONC 30.6 g/dl (33.0-37.0); MEAN PLATELET VOLUME 8.2 fl (9.6-12.3); MONO # 0.4 10*3/uL (0.1-1.0); MONO % 4.9 % (3.0-9.0); NEUT # 6.1 10*3/uL (2.3-7.9); PLATELET COUNT AUTOMATED 280 10*3/uL (130-400); RED BLOOD COUNT 3.51 10*6/uL (4.50-5.90); RED CELL DISTRI WIDTH 13.7 % (0-14.5); WHITE BLOOD COUNT 8.5 10*3/uL (4.8-10.8)
[2021-09-03 17:09] LABS: ALBUMIN 3.1 gm/dl (3.1-4.5); BUN 7 mg/dl (7-24); CHLORIDE 100 mmol/L (98-107); CREATININE 0.71 mg/dL (0.70-1.30); POTASSIUM 3.5 mmol/L (3.5-5.1); SGOT/AST 22 IU/L (3-35); SGPT/ALT 27 U/L (12-78); SODIUM 138 mmol/L (136-145); TOTAL PROTEIN 7.6 gm/dL (6.4-8.2)
[2021-09-03 17:10] LABS: ALKALINE PHOSPHATASE 62 U/L (45-117)
[2021-09-03] MEDS ORDERED: AVPAK AZITHROM250 MG PO (18:09)
[2021-09-03] MEDS ORDERED: PREDNISONE20 M1 PO (18:09)
== END 2021-09-03 18:11 | disposition home or self-care (01) ==
LOC: ED 15:27
PROVIDERS: Emergency Medicine
DX: J44.9 Chronic obstructive pulmonary disease, unspecified (principal); K21.9 Gastro-esophageal reflux disease without esophagitis; E03.9 Hypothyroidism, unspecified; E78.5 Hyperlipidemia, unspecified; I25.10 Atherosclerotic heart disease of native coronary artery without angina pectoris; Z88.1 Allergy status to other antibiotic agents; Z79.899 Other long term (current) drug therapy; Z79.82 Long term (current) use of aspirin

== ENCOUNTER 2022-01-07 14:46 | Emergency (ER) | payer OTHER ==
[~2022-01-07] VITALS: Ht 180.3 cm; Wt 49.9 kg
[~2022-01-07 14:46] MED LIST changes: +AVPAK AZITHROM250 MG PO; +DALI500T PO
[2022-01-07 15:16] LABS: BASO # 0.1 10*3/uL (0.0-0.1); BASO % 0.5 % (0.0-1.0); EOS # 0.4 10*3/uL (0.0-0.4); EOS % 3.7 % (1.0-4.0); HEMATOCRIT 29.1 % (42.0-52.0); LYMPH # 1.9 10*3/uL (1.3-4.4); LYMPH % 16.4 % (27.0-41.0); MEAN CELL VOLUME 84.3 fl (80.0-94.0); MEAN CORPUSCULAR HGB 26.7 pg (27.0-31.0); MEAN CORPUSCULAR HGB CONC 31.6 g/dl (33.0-37.0); MEAN PLATELET VOLUME 7.8 fl (9.6-12.3); MONO # 0.9 10*3/uL (0.1-1.0); MONO % 8.1 % (3.0-9.0); NEUT % 69.4 % (47.0-73.0); PLATELET COUNT AUTOMATED 405 10*3/uL (130-400); RED BLOOD COUNT 3.45 10*6/uL (4.50-5.90); RED CELL DISTRI WIDTH 14.6 % (0-14.5); WHITE BLOOD COUNT 11.5 10*3/uL (4.8-10.8)
[2022-01-07 15:27] LABS: ACT PARTIAL THROMBO TIME 25.4 SECONDS (20.0-32.1)
[2022-01-07 15:34] LABS: ALKALINE PHOSPHATASE 54 U/L (45-117); BUN 9 mg/dl (7-24); CHLORIDE 101 mmol/L (98-107); CPK 104 U/L (39-308); CREATININE 0.96 mg/dL (0.70-1.30); POTASSIUM 3.4 mmol/L (3.5-5.1); SGOT/AST 23 IU/L (3-35); SGPT/ALT 22 U/L (12-78); SODIUM 139 mmol/L (136-145); TOTAL PROTEIN 7.1 gm/dL (6.4-8.2)
== END 2022-01-07 18:50 | disposition home or self-care (01) ==
LOC: ED 14:46
PROVIDERS: Emergency Medicine
DX: S63.501A Unspecified sprain of right wrist, initial encounter (principal); S79.911A Unspecified injury of right hip, initial encounter; S89.91XA Unspecified injury of right lower leg, initial encounter; I25.10 Atherosclerotic heart disease of native coronary artery without angina pectoris; J44.9 Chronic obstructive pulmonary disease, unspecified; K21.9 Gastro-esophageal reflux disease without esophagitis; E78.5 Hyperlipidemia, unspecified; E03.9 Hypothyroidism, unspecified; D64.9 Anemia, unspecified; M81.0 Age-related osteoporosis without current pathological fracture; Z88.1 Allergy status to other antibiotic agents; Z79.899 Other long term (current) drug therapy; Z79.82 Long term (current) use of aspirin; Z87.891 Personal history of nicotine dependence; W18.39XA Other fall on same level, initial encounter; Y93.89 Activity, other specified; Y92.89 Other specified places as the place of occurrence of the external cause; Y99.8 Other external cause status

== ENCOUNTER 2022-09-05 16:54 | Emergency (ER) | payer OTHER ==
[~2022-09-05] VITALS: Ht 180.3 cm; Wt 54.4 kg
[~2022-09-05 16:54] MED LIST changes: +MAGOX 400400 MG PO
[2022-09-05 17:58] LABS: BASO # 0.1 10*3/uL (0.0-0.1); BASO % 0.8 % (0.0-1.0); EOS % 0.5 % (1.0-4.0); HEMATOCRIT 28.8 % (42.0-52.0); LYMPH # 1.9 10*3/uL (1.3-4.4); LYMPH % 28.8 % (27.0-41.0); MEAN CELL VOLUME 79.6 fl (80.0-94.0); MEAN CORPUSCULAR HGB CONC 30.2 g/dl (33.0-37.0); MONO # 0.5 10*3/uL (0.1-1.0); MONO % 8.4 % (3.0-9.0); NEUT % 61.3 % (47.0-73.0); PLATELET COUNT AUTOMATED 256 10*3/uL (130-400); RED BLOOD COUNT 3.62 10*6/uL (4.50-5.90); WHITE BLOOD COUNT 6.5 10*3/uL (4.8-10.8)
[2022-09-05 18:07] LABS: CHLORIDE 99 mmol/L (98-107); POTASSIUM 3.4 mmol/L (3.4-5.1); SODIUM 137 mmol/L (136-145)
[2022-09-05 18:11] LABS: ACT PARTIAL THROMBO TIME 27.6 SECONDS (20.0-32.1); INTERNATIONAL NORM RATIO 1.1 (2.0-3.5)
[2022-09-05 18:15] LABS: ALKALINE PHOSPHATASE 35 U/L (46-116); BUN 9 mg/dl (9-23); LIPASE 30 U/L (12-53)
[2022-09-05 18:16] LABS: SGPT/ALT 10 U/L (10-49)
[2022-09-05 18:17] LABS: TOTAL PROTEIN 6.4 gm/dL (6.0-8.0)
[2022-09-05] MEDS ORDERED: PREDNISONE20 M1 PO (19:14)
== END 2022-09-05 19:45 | disposition home or self-care (01) ==
LOC: ED 16:54
PROVIDERS: Family Medicine
DX: B34.9 Viral infection, unspecified (principal); Z20.822 Contact with and (suspected) exposure to COVID-19; J44.9 Chronic obstructive pulmonary disease, unspecified; Z88.1 Allergy status to other antibiotic agents; Z79.899 Other long term (current) drug therapy; Z79.82 Long term (current) use of aspirin; Z87.891 Personal history of nicotine dependence

== ENCOUNTER 2022-11-28 12:04 | Emergency (ER) | payer OTHER ==
[~2022-11-28] VITALS: Wt 55.8 kg
[~2022-11-28 12:04] MED LIST changes: +AMOX-CLAV 875-1 EACH PO; +MEPOLIZUMAB SQ; +ZITHROMAX500 MG PO
[2022-11-28 12:46] LABS: BASO # 0.1 10*3/uL (0.0-0.1); BASO % 0.6 % (0.0-1.0); EOS % 0.1 % (1.0-4.0); LYMPH # 1.7 10*3/uL (1.3-4.4); LYMPH % 17.3 % (27.0-41.0); MEAN CELL VOLUME 79.2 fl (80.0-94.0); MONO # 0.7 10*3/uL (0.1-1.0); NEUT # 7.4 10*3/uL (2.3-7.9); NEUT % 74.5 % (47.0-73.0); PLATELET COUNT AUTOMATED 289 10*3/uL (130-400); RED BLOOD COUNT 3.79 10*6/uL (4.50-5.90); RED CELL DISTRI WIDTH 16.2 % (0-14.5)
[2022-11-28 12:54] LABS: ACT PARTIAL THROMBO TIME 25.3 SECONDS (20.0-32.1)
[2022-11-28 12:56] LABS: ALKALINE PHOSPHATASE 43 U/L (46-116); BUN 10 mg/dl (9-23); CHLORIDE 99 mmol/L (98-107); POTASSIUM 3.2 mmol/L (3.4-5.1); SGPT/ALT 18 U/L (10-49); TOTAL PROTEIN 6.7 gm/dL (6.0-8.0)
[2022-11-28] MEDS ORDERED: PREDNISONE10 MG PO (14:56)
== END 2022-11-28 15:08 | disposition home or self-care (01) ==
LOC: ED 12:04
PROVIDERS: Family Medicine
DX: J44.1 Chronic obstructive pulmonary disease with (acute) exacerbation (principal); M94.0 Chondrocostal junction syndrome [Tietze]; J44.9 Chronic obstructive pulmonary disease, unspecified; F32.A Depression, unspecified; I25.10 Atherosclerotic heart disease of native coronary artery without angina pectoris; K21.9 Gastro-esophageal reflux disease without esophagitis; F41.9 Anxiety disorder, unspecified; Z88.8 Allergy status to other drugs, medicaments and biological substances; Z88.2 Allergy status to sulfonamides; Z98.890 Other specified postprocedural states; Z87.891 Personal history of nicotine dependence

== ENCOUNTER 2023-05-17 15:56 | Emergency (ER) | payer OTHER ==
[~2023-05-17] VITALS: Ht 180.3 cm; Wt 53.5 kg
[~2023-05-17 15:56] MED LIST changes: +AZITHROMYCIN500 M2 PO; +COLACE100 MG PO; +DOXYCYCLINE MO100 MG PO; +DUPIXENT P300 MG/2 M SQ; +FEROSUL325 MG PO; +MONTELUKAST SOD10 MG PO; +PREDNISONE10 MG PO
[2023-05-17 18:31] LABS: BASO # 0.1 10*3/uL (0.0-0.1); BASO % 0.7 % (0.0-1.0); EOS # 0.8 10*3/uL (0.0-0.4); EOS % 11.3 % (1.0-4.0); HEMATOCRIT 33.8 % (42.0-52.0); LYMPH # 1.9 10*3/uL (1.3-4.4); MEAN CELL VOLUME 86.2 fl (80.0-94.0); MEAN CORPUSCULAR HGB 26.5 pg (27.0-31.0); MEAN CORPUSCULAR HGB CONC 30.8 g/dl (33.0-37.0); MEAN PLATELET VOLUME 8.4 fl (9.6-12.3); MONO # 0.5 10*3/uL (0.1-1.0); MONO % 6.7 % (3.0-9.0); NEUT % 54.9 % (47.0-73.0); PLATELET COUNT AUTOMATED 275 10*3/uL (130-400); RED BLOOD COUNT 3.92 10*6/uL (4.50-5.90); RED CELL DISTRI WIDTH 16.5 % (0-14.5); WHITE BLOOD COUNT 7.3 10*3/uL (4.8-10.8)
[2023-05-17 18:40] LABS: ACT PARTIAL THROMBO TIME 29.6 SECONDS (20.0-32.1); INTERNATIONAL NORM RATIO 1.1 (2.0-3.5)
[2023-05-17 18:50] LABS: ALKALINE PHOSPHATASE 55 U/L (46-116); BUN 13 mg/dl (9-23); CHLORIDE 100 mmol/L (98-107); POTASSIUM 3.5 mmol/L (3.4-5.1); SGPT/ALT 18 U/L (10-49); TOTAL PROTEIN 6.8 gm/dL (6.0-8.0)
[2023-05-17] MEDS ORDERED: PREDNISONE50 MG PO (19:47)
== END 2023-05-17 21:09 | disposition home or self-care (01) ==
LOC: ED 15:56
PROVIDERS: Physician Assistant Medical
DX: J44.1 Chronic obstructive pulmonary disease with (acute) exacerbation (principal); I25.2 Old myocardial infarction; F32.A Depression, unspecified; I25.10 Atherosclerotic heart disease of native coronary artery without angina pectoris; K21.9 Gastro-esophageal reflux disease without esophagitis; E78.00 Pure hypercholesterolemia, unspecified; F41.9 Anxiety disorder, unspecified; Z88.2 Allergy status to sulfonamides; Z88.8 Allergy status to other drugs, medicaments and biological substances; Z98.890 Other specified postprocedural states; F17.200 Nicotine dependence, unspecified, uncomplicated

== ENCOUNTER 2023-09-27 18:04 | Emergency (ER) | payer OTHER ==
[~2023-09-27] VITALS: Ht 180.3 cm; Wt 53.5 kg
[2023-09-27 21:37] LABS: BASO # 0.1 10*3/uL (0.0-0.1); BASO % 0.8 % (0.0-1.0); EOS # 0.1 10*3/uL (0.0-0.4); EOS % 2.3 % (1.0-4.0); HEMATOCRIT 35.2 % (42.0-52.0); LYMPH # 1.6 10*3/uL (1.3-4.4); LYMPH % 25.4 % (27.0-41.0); MEAN CELL VOLUME 89.3 fl (80.0-94.0); MEAN CORPUSCULAR HGB 28.9 pg (27.0-31.0); MEAN CORPUSCULAR HGB CONC 32.4 g/dl (33.0-37.0); MEAN PLATELET VOLUME 8.9 fl (9.6-12.3); MONO # 0.8 10*3/uL (0.1-1.0); MONO % 13.2 % (3.0-9.0); NEUT # 3.6 10*3/uL (2.3-7.9); PLATELET COUNT AUTOMATED 204 10*3/uL (130-400); RED BLOOD COUNT 3.94 10*6/uL (4.50-5.90); RED CELL DISTRI WIDTH 12.3 % (0-14.5); WHITE BLOOD COUNT 6.2 10*3/uL (4.8-10.8)
[2023-09-27 21:58] LABS: ALKALINE PHOSPHATASE 59 U/L (46-116); BUN 17 mg/dl (9-23); CHLORIDE 96 mmol/L (98-107); POTASSIUM 3.5 mmol/L (3.4-5.1); SGPT/ALT 32 U/L (5-49); TOTAL PROTEIN 6.9 gm/dL (6.0-8.0)
[2023-09-27] MEDS ORDERED: DEXAMETHASONE6 MG PO (22:23)
== END 2023-09-27 22:46 | disposition home or self-care (01) ==
LOC: ED 18:04
PROVIDERS: Physician Assistant Medical
DX: U07.1 COVID-19 (principal); I10 Essential (primary) hypertension; I25.2 Old myocardial infarction; J44.9 Chronic obstructive pulmonary disease, unspecified; F17.200 Nicotine dependence, unspecified, uncomplicated; Z88.8 Allergy status to other drugs, medicaments and biological substances; Z88.1 Allergy status to other antibiotic agents; Z88.2 Allergy status to sulfonamides; Z79.899 Other long term (current) drug therapy; Z95.5 Presence of coronary angioplasty implant and graft

== ENCOUNTER → 2024-03-07 | Outpatient (CLI) | payer OTHER ==
[2024-03-07 11:28] LABS: BASO # 0.1 10*3/uL (0.0-0.1); EOS # 0.5 10*3/uL (0.0-0.4); EOS % 7.7 % (1.0-4.0); HEMATOCRIT 37.4 % (42.0-52.0); LYMPH # 1.7 10*3/uL (1.3-4.4); LYMPH % 24.4 % (27.0-41.0); MEAN CELL VOLUME 92.1 fl (80.0-94.0); MEAN CORPUSCULAR HGB 29.3 pg (27.0-31.0); MEAN CORPUSCULAR HGB CONC 31.8 g/dl (33.0-37.0); MEAN PLATELET VOLUME 8.7 fl (9.6-12.3); MONO # 0.4 10*3/uL (0.1-1.0); MONO % 6.2 % (3.0-9.0); NEUT # 4.1 10*3/uL (2.3-7.9); NEUT % 60.4 % (47.0-73.0); PLATELET COUNT AUTOMATED 186 10*3/uL (130-400); RED BLOOD COUNT 4.06 10*6/uL (4.50-5.90); RED CELL DISTRI WIDTH 12.6 % (0-14.5); WHITE BLOOD COUNT 6.8 10*3/uL (4.8-10.8)
[2024-03-07 11:59] LABS: ALKALINE PHOSPHATASE 55 U/L (46-116); BUN 12 mg/dl (9-23); CHLORIDE 100 mmol/L (98-107); CHOLESTEROL 170 mg/dL (<200); LDL CHOLESTEROL 82 mg/dL (9-159); POTASSIUM 3.9 mmol/L (3.4-5.1); SGPT/ALT 29 U/L (5-49); TRIGLYCERIDES 98 mg/dl (<150)
[2024-03-07 12:06] LABS: VITAMIN D, 25-HYDROXY 87.6 ng/mL (30-100)
== END | disposition home or self-care (01) ==
LOC: CT 10:45
PROVIDERS: ATTEND Internal Medicine
DX: Z12.5 Encounter for screening for malignant neoplasm of prostate (principal); I10 Essential (primary) hypertension; I25.10 Atherosclerotic heart disease of native coronary artery without angina pectoris; J43.9 Emphysema, unspecified; E78.5 Hyperlipidemia, unspecified; N20.0 Calculus of kidney; M54.50 Low back pain, unspecified; Z13.1 Encounter for screening for diabetes mellitus; Z87.891 Personal history of nicotine dependence; Z13.0 Encounter for screening for diseases of the blood and blood-forming organs and certain disorders involving the immune mechanism; Z13.21 Encounter for screening for nutritional disorder; Z13.220 Encounter for screening for lipoid disorders; Z13.228 Encounter for screening for other metabolic disorders; Z13.6 Encounter for screening for cardiovascular disorders; Z13.89 Encounter for screening for other disorder; Z13.9 Encounter for screening, unspecified